=== PATIENT | female | born 1925 | race Caucasian/White ===

== ENCOUNTER 2016-08-20 19:01 | Inpatient (IN) | payer MEDICARE ==
[2016-08-20 19:02] VITALS: BMI 24.6
--- NOTE | 2016-08-20 19:49 | C.PDOC ---
History Of Present Illness 89 y/o female presents to ED with complaints of intermittent epigastric abdominal pain increased when eating or lying down. Patient states pain is similar as in the past and was admitted in February for same symptoms and biopsy of abdomen was done with a diagnosis of Gastritis and a Hernia. Patient states she has taken Zantac in the past for similar pain with relief but 3 days ago pain increased. She states that she feels bloated, worse at night with associated flatuence. Patient reports a bland diet and denies nausea, vomiting or any other complaints at this time. Time Seen by Provider: 08/20/16 19:33 Chief Complaint (Nursing): Abdominal Pain History Per: Patient History/Exam Limitations: no limitations Onset/Duration Of Symptoms: Days Current Symptoms Are (Timing): Still Present Location Of Pain/Discomfort: Epigastric Exacerbating Factors: Food Past Medical History Reviewed: Historical Data, Nursing Documentation, Vital Signs Vital Signs: Last Vital Signs Temp 97.5 F L 08/20/16 19:13 Pulse 60 08/20/16 19:13 Resp 16 08/20/16 19:13 BP 139/66 08/20/16 19:13 Pulse Ox 98 08/20/16 22:45 - Medical History PMH: Arthritis, Gastritis, HTN, Hypothyroidism Surgical History: Cholecystectomy - [facility] Procedures CLOSED ENDOSCOPIC BIOPSY OF LARGE INTESTINE (07/10/14) ESOPHAGOGASTRODUODENOSCOPY [EGD] W/CLOSED BIOPSY (07/17/14) Family History: States: Unknown Family Hx - Social History Hx Tobacco Use: No Hx Alcohol Use: No Hx Substance Use: No - Immunization History Hx Tetanus Toxoid Vaccination: No Hx Influenza Vaccination: Yes Hx Pneumococcal Vaccination: Yes Review Of Systems Except As Marked, All Systems Reviewed And Found Negative. Constitutional: Negative for: Fever, Chills Gastrointestinal: Positive for: Abdominal Pain. Negative for: Nausea, Vomiting , Diarrhea Musculoskeletal: Negative for: Back Pain Skin: Negative for: Rash Physical Exam - Physical Exam Appears: Non-toxic, No Acute Distress Skin: Normal Color, Warm Head: Atraumatic, Normacephalic Oral Mucosa: Moist Cardiovascular: Rhythm Regular, No Murmur Respiratory: Normal Breath Sounds, No Rales, No Rhonchi, No Wheezing Gastrointestinal/Abdominal: Bowel Sounds, Tenderness (Mild epigastrium tenderness), No Guarding, No Rebound Extremity: Normal ROM, Capillary Refill (<2 seconds) Neurological/Psych: Oriented x3 ED Course And Treatment - Laboratory Results Result Diagrams: 08/20/16 19:51 08/20/16 19:51 Lab Interpretation: Abnormal (Mild renal insufficience with BUN 44, Cr 2.0, slightly elevated compared to prior in Feb.) ECG: Interpreted By Me ECG Rhythm: 1st Degree HB ECG Interpretation: No Acute Changes O2 Sat by Pulse Oximetry: 98 (RA) Pulse Ox Interpretation: Normal - CT Scan/US Abd & pelvis CT Other Rad Studies (CT/US): Read By Radiologist, Radiology Report Reviewed CT/US Interpretation: FINDINGS: Lower thorax: Trace bibasilar atelectasis. ABDOMEN: Liver: No acute findings. Gallbladder and bile ducts: The gallbladder is surgically absent. No intra-extrahepatic biliary ductal. dilation. Pancreas: Limited evaluation secondary to the lack of intravenous contrast. Spleen: No acute findings. Adrenals: No acute findings. Kidneys and ureters: No obstructing stones. No hydronephrosis. PELVIS: Bladder: No acute findings. Reproductive: No acute findings. Appendix: The appendix is not definitively visualized, however no pericecal inflammatory changes. identified to suggest the presence of acute appendicitis. ABDOMEN and PELVIS: Stomach and bowel: Small bowel wall thickening within the upper abdomen, but no surrounding. inflammation or fluid to confirm an acute enteritis. Peritoneum: No acute findings. Lymph nodes: Limited evaluation without intravenous contrast. Vasculature: No aortic aneurysm. Calcified atherosclerotic disease. Bones: No acute fracture. IMPRESSION: Mural thickening within multiple loops of small bowel within the upper abdomen without surrounding. inflammation or fluid to confirm an acute enteritis. Reevaluation Time: 22:56 Reassessment Condition: Improved - Physician Consult Information Time Consulting Physician Contacted: 22:56 Physician Contacted: Sharee Rutledge Outcome Of Conversation: Patient to be kept on observation for evaluation of new renal insufficiency. Disposition - Disposition Disposition: HOSPITALIZED Disposition Time: 22:56 Condition: STABLE - POA Present On Arrival: None - Clinical Impression Clinical Impression: Abdominal pain, Renal insufficiency - Scribe Statement The provider has reviewed the documentation as recorded by the Scribe Indra Whitehead All medical record entries made by the Manjeetibe were at my direction and personally dictated by me. I have reviewed the chart and agree that the record accurately reflects my personal performance of the history, physical exam, medical decision making, and the department course for this patient. I have also personally directed, reviewed, and agree with the discharge instructions and disposition.
[2016-08-20 19:54] LABS: BASO % 0.3 % (0.0-2.0); EOS # 0.1 K/uL (0.0-0.7); EOS % 2.3 % (0.0-4.0); HEMATOCRIT 35.9 % (34.0-47.0); LYMPH % 33.1 % (20.0-40.0); MEAN CORPUSCULAR HEMOGLOBIN 33.2 pg (27.0-31.0); MEAN CORPUSCULAR HGB CONC 33.3 g/dL (33.0-37.0); MONO # 0.8 K/uL (0.0-0.8); MONO % 13.1 % (0.0-10.0); RED CELL DISTRIBUTION WIDTH 14.5 % (11.5-14.5); WHITE BLOOD COUNT 6.2 K/uL (4.8-10.8)
[2016-08-20 20:00] LABS: MEAN CELL VOLUME 99.6 fL (81.0-99.0)
[2016-08-20 20:21] LABS: POTASSIUM 5.1 mmol/L (3.6-5.2)
[2016-08-20 20:23] LABS: ALB/GLOB RATIO 1.4 (1.0-2.1); BILIRUBIN,TOTAL 0.5 mg/dL (0.2-1.3); TOTAL PROTEIN 7.3 g/dL (6.3-8.3)
[2016-08-20] MEDS ORDERED: Iohexol 240 (50 ml) ONE (20:51)
[2016-08-20 21:49] LABS: RBC URINE 1 /hpf (0-3); URINE BILIRUBIN NEGATIVE (NEGATIVE); URINE BLOOD NEGATIVE (NEGATIVE); URINE COLOR Straw (YELLOW); URINE GLUCOSE (UA) NORMAL (Normal); URINE KETONE NEGATIVE (NEGATIVE); URINE PROTEIN NEGATIVE (NEGATIVE); URINE UROBILINOGEN NORMAL mg/dL (0.2-1.0); WBC URINE 1 /hpf (0-5)
[2016-08-20 21:50] LABS: URINE LEUKOCYTE ESTERASE NEGATIVE Leu/uL (Negative)
--- NOTE | 2016-08-20 22:32 | CT ---
EXAM: CT Abdomen and Pelvis Without Intravenous Contrast CLINICAL HISTORY: 89 years old, female; Pain; Abdominal pain; Generalized; Additional info: Epigastric pain TECHNIQUE: Axial computed tomography images of the abdomen and pelvis without intravenous contrast. Oral contrast was utilized This CT exam was performed using one or more of the following dose reduction techniques: automated exposure control, adjustment of the mA and/or kV according to patient size, and/or use of iterative reconstruction technique. Coronal and sagittal reformatted images were created and reviewed. COMPARISON: No relevant prior studies available. FINDINGS: Lower thorax: Trace bibasilar atelectasis. ABDOMEN: Liver: No acute findings Gallbladder and bile ducts: The gallbladder is surgically absent. No intra-extrahepatic biliary ductal dilation. Pancreas: Limited evaluation secondary to the lack of intravenous contrast. Spleen: No acute findings. Adrenals: No acute findings. Kidneys and ureters: No obstructing stones. No hydronephrosis. PELVIS: Bladder: No acute findings. Reproductive: No acute findings. Appendix: The appendix is not definitively visualized, however no pericecal inflammatory changes identified to suggest the presence of acute appendicitis. ABDOMEN and PELVIS: Stomach and bowel: Small bowel wall thickening within the upper abdomen, but no surrounding inflammation or fluid to confirm an acute enteritis. Peritoneum: No acute findings. Lymph nodes: Limited evaluation without intravenous contrast. Vasculature: No aortic aneurysm. Calcified atherosclerotic disease. Bones: No acute fracture. IMPRESSION: Mural thickening within multiple loops of small bowel within the upper abdomen without surrounding inflammation or fluid to confirm an acute enteritis.
--- NOTE | 2016-08-20 23:26 | CP.PCM.HP ---
History of Present Illness - History of Present Illness History of Present Illness: Chief complaint: Abdominal pain History present illness: 89-year-old female with history of aortic regurgitation, atrial fibrillation, hypertension, hyperlipidemia on anticoagulation. Recently diagnosed with hypothyroidism. Started on levothyroxine. Patient called me office today in the morning, at the time she was complaining of abdominal pain. Patient started noticing pain since 2 days. Swelling got worse. The pain was mostly in the epigastric and right upper abdominal area, sometimes radiating to the lower abdominal region. She does not have any urinary symptoms. No fever or chills noted, denies any nausea vomiting. Patient did have a symptoms of lower back pain in the past, hospitalized with a severe lower back pain. Currently having no nausea, but abdominal pain worsening slowly. Surgical history: Cholecystectomy. Had a colonoscopy in 2014. Bilateral cataract surgery. Patient is on Coumadin for atrial fibrillation Allergy: No known drug allergy Personal history: Patient is a nonsmoker, nonalcoholic, currently independent and able to manage herself at home. Family history noncontributory. Both parents many years ago. History of heart disease and high blood pressure in the family Review of system: Currently having no headache, but the complaining of weakness tiredness, easy fatigability, chest pain negative, complaining of abdominal pain, epigastric area, sometimes associated with the nausea but no vomiting noted, leg swelling and leg pain negative Vital signs reviewed No neck vein distention noted Chest good air entry bilaterally, no wheezing or rales noted CVS regular heart sound, no murmur noted Abdominal discomfort and epigastric tenderness noted Extremities no pedal edema [employer] alert awake oriented 3, no functional neurological deficit Patient's labs reviewed Elevated creatinine level noted In 06/03/2016 patient had a blood works done in the office, at the time patient creatinine level is 1.4. At that time TSH was 38.9. 2 weeks ago patient started on levothyroxine 25 g CAT scan of the abdomen nonspecific today. Assessment and a condition: 89-year-old female with history of hypertension high cholesterol A. fib defibrillation hypothyroidism spinal stenosis lower back pain on anticoagulation history of cholecystectomy came to the emergency room with the abdominal pain. Unclear at this time, most likely nonspecific abdominal pain. Acute gastritis cannot be ruled out. There is a gastroenteritis possible. We will start the patient on IV fluid. Acute on chronic renal insufficiency noted. We'll get a GI evaluation. TSH monitoring. DVT GI prophylaxis and will follow the patient Present on Admission - Present on Admission Any Indicators Present on Admission: No History of DVT/PE: No History of Uncontrolled Diabetes: No Urinary Catheter: No Decubitus Ulcer Present: No Past Patient History - Past Medical History & Family History Past Medical History?: Yes - Past Social History Smoking Status: Never Smoked - CARDIAC Hx Hypertension: Yes - PULMONARY Hx Respiratory Disorders: No - NEUROLOGICAL Hx Neurological Disorder: No - HEENT Hx HEENT Problems: No - RENAL Hx Chronic Kidney Disease: No - ENDOCRINE/METABOLIC Hx Hypothyroidism: Yes - HEMATOLOGICAL/ONCOLOGICAL Hx Blood Disorders: No - INTEGUMENTARY Hx Dermatological Problems: No - MUSCULOSKELETAL/RHEUMATOLOGICAL Hx Arthritis: Yes - GASTROINTESTINAL Hx Gastritis: Yes - GENITOURINARY/GYNECOLOGICAL Hx Genitourinary Disorders: No - PSYCHIATRIC Hx Substance Use: No - SURGICAL HISTORY Hx Cholecystectomy: Yes - ANESTHESIA Hx Anesthesia: Yes Hx Anesthesia Reactions: No Hx Malignant Hyperthermia: No Meds Home Medications: Home Medication List Medication Instructions Recorded Confirmed Type Levothyroxine [Synthroid] 75 mcg PO DAILY@0630 #30 tab 08/26/16 Rx Pantoprazole [Protonix EC Tab] 40 mg PO DAILY #30 ect 08/26/16 Rx Allergies/Adverse Reactions: Allergies Allergy/AdvReac Type Severity Reaction Status Date / Time No Known Allergies Allergy Verified 08/20/16 19:28 Results - Vital Signs Recent Vital Signs: Last Vital Signs Temp 98.1 F 08/20/16 21:50 Pulse 68 08/20/16 21:50 Resp 16 08/20/16 21:50 BP 128/72 08/20/16 21:50 Pulse Ox 98 08/20/16 22:57 - Labs Result Diagrams: 08/26/16 08:23 08/26/16 08:23
[2016-08-21] MEDS: Sodium Chloride 0.9% 1,000 ML IV SCH ×2 (00:15→13:13)
[2016-08-21] MEDS: Levothyroxine 25 MCG TAB PO SCH (06:00)
[2016-08-21 11:50] LABS: INR 2.1; POTASSIUM 4.5 mmol/L (3.6-5.2)
[2016-08-21 11:54] LABS: CALCIUM 9.3 mg/dl (8.6-10.4)
--- NOTE | 2016-08-21 20:04 | CP.PCM.CON ---
History of Present Illness - History of Present Illness History of Present Illness: This is an 89 year old woman admitted with abdominal pain and renal insufficiency. Patient was evaluated in 2014. Colonoscopy was performed 07/10/2014 and was normal except for non-specific proctitis and internal hemorrhoids. She was admitted 07/17/2014 for LUQ pain with normal CT scan. 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 Patient was in her usual state of health until several months ago, when she noted epigastric abdominal pain while visiting the [facility]. She saw a doctor there who prescribed Zantac, which provided some relief. The pain recurred one week ago, and has been constant since then. The pain is located in the epigastrium, described as sharp, worse on recumbency and slightly improved on sitting up. There is no change in the pain with meals or defecation. She denies having heartburn, dysphagia, nausea or vomiting. Her appetite has been poor, and she has lost six pounds in the past month. She has been constipated, small, firm bowel movements every few days until the day prior to admission when she had one watery bowel movement. She denies having rectal bleeding, CT scan in the ER showed thickening of the wall of multiple small bowel loops without surrounding inflammation or fluid. Review of Systems - Review of Systems All systems: reviewed and no additional remarkable complaints except - Constitutional Constitutional: absent: Chills, Fever - Gastrointestinal Gastrointestinal: Abdominal Pain, Constipation, Diarrhea. absent: Dysphagia, Heartburn, Hematochezia, Nausea, Vomiting Past Patient History - Past Medical History & Family History Past Medical History?: Yes - Past Social History Smoking Status: Never Smoked - CARDIAC Hx Cardiac Disorders: Yes Hx Hypertension: Yes - PULMONARY Hx Respiratory Disorders: No - NEUROLOGICAL Hx Neurological Disorder: No - HEENT Hx HEENT Problems: No Other/Comment: uses eyeglasses - RENAL Hx Chronic Kidney Disease: No - ENDOCRINE/METABOLIC Hx Hypothyroidism: Yes - HEMATOLOGICAL/ONCOLOGICAL Hx Blood Disorders: No - INTEGUMENTARY Hx Dermatological Problems: No - MUSCULOSKELETAL/RHEUMATOLOGICAL Hx Arthritis: Yes (BACK) - GASTROINTESTINAL Hx Gastrointestinal Disorders: Yes Hx Gastritis: Yes - GENITOURINARY/GYNECOLOGICAL Hx Genitourinary Disorders: No - PSYCHIATRIC Hx Psychophysiologic Disorder: No Hx Substance Use: No - SURGICAL HISTORY Hx Surgeries: Yes Hx Cholecystectomy: Yes - ANESTHESIA Hx Anesthesia: Yes Hx Anesthesia Reactions: No Hx Malignant Hyperthermia: No Meds Allergies/Adverse Reactions: Allergies Allergy/AdvReac Type Severity Reaction Status Date / Time No Known Allergies Allergy Verified 08/20/16 19:28 - Medications Medications: Current Medications Amiodarone HCl (Cordarone) 200 mg PO DAILY [facility] Last Admin: 08/21/16 09:21 Dose: Not Given Amlodipine Besylate (Norvasc) 5 mg PO DAILY [facility] Last Admin: 08/21/16 09:22 Dose: 5 mg Famotidine (Pepcid) 20 mg PO DAILY [facility] Last Admin: 08/21/16 09:22 Dose: 20 mg Sodium Chloride (Sodium Chloride 0.9%) 1,000 mls @ 75 mls/hr IV .[id number] [facility] Last Admin: 08/21/16 13:13 Dose: 75 mls/hr Levothyroxine Sodium (Synthroid) 25 mcg PO DAILY@0630 [facility] Last Admin: 08/21/16 06:00 Dose: 25 mcg Losartan Potassium (Cozaar) 25 mg PO DAILY [facility] Last Admin: 08/21/16 09:22 Dose: 25 mg Metoprolol Tartrate (Lopressor) 25 mg PO DAILY [facility] Pneumococcal Polyvalent Vaccine (Pneumovax 23 Vaccine) 0.5 ml IM .ONCE ONE Stop: 08/22/16 10:01 Physical Exam - Constitutional Appears: No Acute Distress - Head Exam Head Exam: ATRAUMATIC, NORMOCEPHALIC - Eye Exam Eye Exam: EOMI, PERRL - Neck Exam Neck exam: Negative for: Lymphadenopathy, Thyromegaly - Respiratory Exam Respiratory Exam: NORMAL BREATHING PATTERN. absent: Rales, Rhonchi, Wheezes - Cardiovascular Exam Cardiovascular Exam: REGULAR RHYTHM, +S1, +S2. absent: Gallop, Rubs, Systolic Murmur - GI/Abdominal Exam GI & Abdominal Exam: Normal Bowel Sounds, Soft. absent: Mass, Organomegaly, Tenderness - Rectal Exam Rectal Exam: Deferred - Extremities Exam Extremities exam: Negative for: calf tenderness, pedal edema Results - Vital Signs Recent Vital Signs: Last Vital Signs Temp 98.0 F 08/21/16 16:00 Pulse 52 L 08/21/16 16:00 Resp 20 08/21/16 16:00 BP 122/59 L 08/21/16 16:00 Pulse Ox 97 08/21/16 16:00 - Labs Result Diagrams: 08/22/16 07:00 08/22/16 07:00 Labs: Laboratory Results - last 24 hr 08/21/16 08/21/16 11:36 11:36 PT 25.1 H INR 2.1 Sodium 143 Potassium 4.5 Chloride 106 Carbon Dioxide 26 Anion Gap 16 BUN 33 H Creatinine 1.6 H Est GFR ( Amer) 37 Est GFR (Non-Af Amer) 30 Random Glucose 121 H Calcium 9.3 Assessment & Plan (1) Abdominal pain Assessment and Plan: Patient presents with epigastric abdominal pain and findings of thickening of the wall of small bowel loops on CT scan. The appearance of the small bowel is worrisome for inflammation as from Crohn's disease, intramural hematoma, or ischemia. We should check a CT angiogram when renal function improves, and doppler of the mesenteric arteries for now. Status: Acute
[2016-08-21 21:03] LABS: BASO % 0.5 % (0.0-2.0); EOS # 0.1 K/uL (0.0-0.7); EOS % 2.6 % (0.0-4.0); HEMATOCRIT 37.3 % (34.0-47.0); LYMPH # 1.9 K/uL (1.0-4.3); LYMPH % 34.1 % (20.0-40.0); MEAN CELL VOLUME 100.5 fL (81.0-99.0); MEAN CORPUSCULAR HEMOGLOBIN 33.1 pg (27.0-31.0); MEAN CORPUSCULAR HGB CONC 32.9 g/dL (33.0-37.0); MEAN PLATELET VOLUME 8.9 fL (7.2-11.7); MONO # 0.7 K/uL (0.0-0.8); MONO % 12.7 % (0.0-10.0); NRBC % 0.1 % (0.0-2.0); RED CELL DISTRIBUTION WIDTH 14.7 % (11.5-14.5); WHITE BLOOD COUNT 5.5 K/uL (4.8-10.8)
[2016-08-21 21:13] LABS: POTASSIUM 4.4 mmol/L (3.6-5.2)
[2016-08-21 21:15] LABS: BILIRUBIN,TOTAL 0.5 mg/dL (0.2-1.3)
[2016-08-21 21:16] LABS: ALB/GLOB RATIO 1.2 (1.0-2.1); CALCIUM 8.6 mg/dl (8.6-10.4); PHOSPHOROUS 3.1 mg/dL (2.5-4.5); TOTAL PROTEIN 7.1 g/dL (6.3-8.3)
--- NOTE | 2016-08-22 00:32 | CARD ---
APPROVED REPORT EKG Measurement Heart [id number] <Conclusion> Sinus rhythm with 1st degree AV block Otherwise normal ECG
[2016-08-22] MEDS: Sodium Chloride 0.9% 1,000 ML IV SCH ×2 (02:00→14:33)
[2016-08-22] MEDS: Levothyroxine 25 MCG TAB PO SCH (05:45)
[2016-08-22 07:28] LABS: ALB/GLOB RATIO 1.3 (1.0-2.1); BILIRUBIN,TOTAL 0.7 mg/dL (0.2-1.3); CALCIUM 8.8 mg/dl (8.6-10.4); POTASSIUM 4.1 mmol/L (3.6-5.2); TOTAL PROTEIN 7.5 g/dL (6.3-8.3)
[2016-08-22 07:37] LABS: BASO % 0.4 % (0.0-2.0); EOS # 0.1 K/uL (0.0-0.7); EOS % 2.1 % (0.0-4.0); HEMATOCRIT 37.4 % (34.0-47.0); LYMPH # 1.6 K/uL (1.0-4.3); LYMPH % 22.1 % (20.0-40.0); MEAN CELL VOLUME 99.1 fL (81.0-99.0); MEAN CORPUSCULAR HEMOGLOBIN 33.2 pg (27.0-31.0); MEAN CORPUSCULAR HGB CONC 33.5 g/dL (33.0-37.0); MEAN PLATELET VOLUME 8.7 fL (7.2-11.7); MONO # 0.5 K/uL (0.0-0.8); MONO % 7.4 % (0.0-10.0); RED CELL DISTRIBUTION WIDTH 14.6 % (11.5-14.5)
--- NOTE | 2016-08-22 08:35 | CP.PCM.PN ---
Subjective - Date & Time of Evaluation Date of Evaluation: 08/22/16 Time of Evaluation: 08:31 - Subjective Subjective: Patient continues to complain of subxiphoid pain. She denies having nausea and vomiting. She has not had a bowel movement so far today. Objective - Vital Signs/Intake and Output Vital Signs (last 24 hours): Temp Pulse Resp BP Pulse Ox 98 F 60 20 117/57 L 96 08/22/16 07:55 08/22/16 07:55 08/22/16 07:55 08/22/16 07:55 08/22/16 07:55 Intake and Output: 08/22/16 08/22/16 06:59 18:59 Intake Total 1750 Balance 1750 - Medications Medications: Current Medications Amiodarone HCl (Cordarone) 200 mg PO DAILY [facility] Last Admin: 08/21/16 09:21 Dose: Not Given Amlodipine Besylate (Norvasc) 5 mg PO DAILY [facility] Last Admin: 08/21/16 09:22 Dose: 5 mg Famotidine (Pepcid) 20 mg PO DAILY [facility] Last Admin: 08/21/16 09:22 Dose: 20 mg Sodium Chloride (Sodium Chloride 0.9%) 1,000 mls @ 75 mls/hr IV .[id number] [facility] Last Admin: 08/22/16 02:00 Dose: 75 mls/hr Levothyroxine Sodium (Synthroid) 25 mcg PO DAILY@0630 [facility] Last Admin: 08/22/16 05:45 Dose: 25 mcg Losartan Potassium (Cozaar) 25 mg PO DAILY [facility] Last Admin: 08/21/16 09:22 Dose: 25 mg Metoprolol Tartrate (Lopressor) 25 mg PO DAILY [facility] Pneumococcal Polyvalent Vaccine (Pneumovax 23 Vaccine) 0.5 ml IM .ONCE ONE Stop: 08/22/16 10:01 - Labs Labs: 08/22/16 07:00 08/22/16 07:00 PT 25.1 SECONDS (9.7-12.2) H 08/21/16 11:36 INR 2.1 08/21/16 11:36 - Constitutional Appears: No Acute Distress - Head Exam Head Exam: ATRAUMATIC, NORMOCEPHALIC - Eye Exam Eye Exam: EOMI, PERRL - Neck Exam Neck Exam: absent: Lymphadenopathy, Thyromegaly - Respiratory Exam Respiratory Exam: NORMAL BREATHING PATTERN. absent: Rales, Rhonchi, Wheezes - Cardiovascular Exam Cardiovascular Exam: REGULAR RHYTHM, +S1, +S2. absent: Gallop, Rubs, Murmur - GI/Abdominal Exam GI & Abdominal Exam: Soft, Normal Bowel Sounds. absent: Tenderness, Mass, Organomegaly - Rectal Exam Rectal Exam: Deferred - Extremities Exam Extremities Exam: absent: Calf Tenderness, Pedal Edema Assessment and Plan (1) Abdominal pain Assessment & Plan: Patient states that she continues to experience pain in the subxiphoid area. The CT scan showed mural thickening of several loops of small bowel. The lactate level was normal, but the amylase was elevated at 234. Will check doppler of the mesenteric arteries. Recommend CT angiogram if renal function permits, Status: Acute
[2016-08-22 09:02] LABS: THYROID STIMULATING HORMONE 32.8 mIU/L (0.46-4.68)
[2016-08-22] MEDS ORDERED: Pneumococcal 23-Valent Vaccine IM ONE (10:00)
--- NOTE | 2016-08-22 10:01 | CP.PCM.CON ---
History of Present Illness - History of Present Illness History of Present Illness: Vascular sx consult for Dr. Sara Posey, PGY-1 Pt S & E at bedside. 89F w/PMH sig for afib consulted for possible mesenteric ischemia. Pt reports LLQ ab discomfort x 2 mos. Discomfort is moderate, intermittent, radiates to epigastric area when recumbent, "pressure" - like/bloating, "gnawing". Pt reports recent wt loss of 6lbs over last few months due to early satiety. Discomfort is not associated with eating. Discomfort alleviated by compressive garments, minimally helped by Zantac and Nexium, hot water bottles. Admits to dizziness, decreased energy, insomnia, feeling "drunk", occasional constipation w/small pasty stools and straining to pass stool. Denies N/V/F/C, CP, palpitations, hematochezia, occasional diarrhea, numbness and tingling. PMH: afib on Coumadin, Aortic regurgitation, HTN, HLD, arthritis, hypothyroidism , internal hemorrhoids, proctitis PSH: x 1, cholecystectomy, colonoscopy (2015), B/L cataract sx All: Denies SH: Denies ETOH, tobacco, illicit drug use PMD: Aamir Review of Systems - Review of Systems All systems: reviewed and no additional remarkable complaints except - Constitutional Constitutional: Weight Loss, Weakness. absent: Chills, Fever - EENT Ears: Dizziness Nose/Mouth/Throat: absent: Dysphagia, Odynophagia, Sore Throat, Neck Pain - Cardiovascular Cardiovascular: absent: Chest Pain, Palpitations - Respiratory Respiratory: absent: Cough, Chest Congestion - Gastrointestinal Gastrointestinal: Belching, Bloating, Constipation, Diarrhea, Early Satiety. absent: Abdominal Pain, Hematemesis, Hematochezia, Nausea, Vomiting - Genitourinary Genitourinary: absent: Dysuria - Musculoskeletal Musculoskeletal: absent: Numbness, Tingling - Neurological Neurological: Dizziness, Weakness - Psychiatric Psychiatric: Abnormal Sleep Pattern Past Patient History - Past Medical History & Family History Past Medical History?: Yes - Past Social History Smoking Status: Never Smoked - CARDIAC Hx Cardiac Disorders: Yes Hx Hypertension: Yes - PULMONARY Hx Respiratory Disorders: No - NEUROLOGICAL Hx Neurological Disorder: No - HEENT Hx HEENT Problems: No Other/Comment: uses eyeglasses - RENAL Hx Chronic Kidney Disease: No - ENDOCRINE/METABOLIC Hx Hypothyroidism: Yes - HEMATOLOGICAL/ONCOLOGICAL Hx Blood Disorders: No - INTEGUMENTARY Hx Dermatological Problems: No - MUSCULOSKELETAL/RHEUMATOLOGICAL Hx Arthritis: Yes (BACK) - GASTROINTESTINAL Hx Gastrointestinal Disorders: Yes Hx Gastritis: Yes - GENITOURINARY/GYNECOLOGICAL Hx Genitourinary Disorders: No - PSYCHIATRIC Hx Psychophysiologic Disorder: No Hx Substance Use: No - SURGICAL HISTORY Hx Surgeries: Yes Hx Cholecystectomy: Yes - ANESTHESIA Hx Anesthesia: Yes Hx Anesthesia Reactions: No Hx Malignant Hyperthermia: No Meds Allergies/Adverse Reactions: Allergies Allergy/AdvReac Type Severity Reaction Status Date / Time No Known Allergies Allergy Verified 08/20/16 19:28 - Medications Medications: Current Medications Amiodarone HCl (Cordarone) 200 mg PO DAILY [facility] Last Admin: 08/21/16 09:21 Dose: Not Given Amlodipine Besylate (Norvasc) 5 mg PO DAILY [facility] Last Admin: 08/21/16 09:22 Dose: 5 mg Sodium Chloride (Sodium Chloride 0.9%) 1,000 mls @ 75 mls/hr IV .[id number] [facility] Last Admin: 08/22/16 02:00 Dose: 75 mls/hr Levothyroxine Sodium (Synthroid) 25 mcg PO DAILY@0630 [facility] Last Admin: 08/22/16 05:45 Dose: 25 mcg Losartan Potassium (Cozaar) 25 mg PO DAILY [facility] Last Admin: 08/21/16 09:22 Dose: 25 mg Metoprolol Tartrate (Lopressor) 25 mg PO DAILY [facility] Pantoprazole Sodium (Protonix Ec Tab) 40 mg PO DAILY [facility] Pneumococcal Polyvalent Vaccine (Pneumovax 23 Vaccine) 0.5 ml IM .ONCE ONE Stop: 08/22/16 10:01 Physical Exam - Constitutional Appears: Non-toxic, No Acute Distress - Head Exam Head Exam: ATRAUMATIC, NORMAL INSPECTION, NORMOCEPHALIC - Eye Exam Eye Exam: EOMI, Normal appearance - ENT Exam ENT Exam: Mucous Membranes Moist, Normal Exam - Neck Exam Neck exam: Positive for: Full Rom - Respiratory Exam Respiratory Exam: Clear to Auscultation Bilateral, NORMAL BREATHING PATTERN - Cardiovascular Exam Cardiovascular Exam: Irregular Rhythm - GI/Abdominal Exam GI & Abdominal Exam: Normal Bowel Sounds, Soft. absent: Distended, Firm, Guarding, Rebound, Rigid, Tenderness - Extremities Exam Extremities exam: Positive for: normal inspection. Negative for: pedal edema - Neurological Exam Neurological exam: Alert, CN II-XII Intact, Oriented x3 - Psychiatric Exam Psychiatric exam: Normal Affect, Normal Mood - Skin Skin Exam: Dry, Intact, Normal Color, Warm Additional comments: Midline well healed suprapubic scar extending to distal umbilicus Results - Vital Signs Recent Vital Signs: Last Vital Signs Temp 98 F 08/22/16 07:55 Pulse 60 08/22/16 07:55 Resp 20 08/22/16 07:55 BP 117/57 L 08/22/16 07:55 Pulse Ox 96 08/22/16 07:55 - Labs Result Diagrams: 08/22/16 07:00 08/22/16 07:00 Labs: Laboratory Results - last 24 hr 08/21/16 08/21/16 08/21/16 11:36 11:36 21:00 WBC 5.5 RBC 3.71 L Hgb 12.3 Hct 37.3 MCV 100.5 H MCH 33.1 H MCHC 32.9 L RDW 14.7 H Plt Count 129 L MPV 8.9 Neut % (Auto) 50.1 Lymph % (Auto) 34.1 Polk % (Auto) 12.7 H Eos % (Auto) 2.6 Baso % (Auto) 0.5 Neut # 2.7 Lymph # 1.9 Polk # 0.7 Eos # 0.1 Baso # 0.0 Differential Comment PT 25.1 H INR 2.1 Sodium 143 Potassium 4.5 Chloride 106 Carbon Dioxide 26 Anion Gap 16 BUN 33 H Creatinine 1.6 H Est GFR ( Amer) 37 Est GFR (Non-Af Amer) 30 Random Glucose 121 H Lactic Acid Calcium 9.3 Phosphorus Magnesium Total Bilirubin AST ALT Alkaline Phosphatase Total Protein Albumin Globulin Albumin/Globulin Ratio Amylase TSH 3rd Generation 08/21/16 08/21/16 08/22/16 21:00 21:00 07:00 WBC 7.0 RBC 3.77 L Hgb 12.5 Hct 37.4 MCV 99.1 H MCH 33.2 H MCHC 33.5 RDW 14.6 H Plt Count 156 MPV 8.7 Neut % (Auto) 68.0 Lymph % (Auto) 22.1 Polk % (Auto) 7.4 Eos % (Auto) 2.1 Baso % (Auto) 0.4 Neut # 4.8 Lymph # 1.6 Polk # 0.5 Eos # 0.1 Baso # 0.0 Differential Comment PT INR Sodium 137 Potassium 4.4 Chloride 100 Carbon Dioxide 25 Anion Gap 17 BUN 28 H Creatinine 1.4 H Est GFR ( Amer) 43 Est GFR (Non-Af Amer) 35 Random Glucose 98 Lactic Acid 1.0 Calcium 8.6 Phosphorus 3.1 Magnesium 2.0 Total Bilirubin 0.5 AST 27 ALT 24 Alkaline Phosphatase 42 Total Protein 7.1 Albumin 3.9 Globulin 3.2 Albumin/Globulin Ratio 1.2 Amylase 234 H TSH 3rd Generation 08/22/16 07:00 WBC RBC Hgb Hct MCV MCH MCHC RDW Plt Count MPV Neut % (Auto) Lymph % (Auto) Polk % (Auto) Eos % (Auto) Baso % (Auto) Neut # Lymph # Polk # Eos # Baso # Differential Comment PT INR Sodium 139 Potassium 4.1 Chloride 104 Carbon Dioxide 25 Anion Gap 14 BUN 23 H Creatinine 1.2 Est GFR ( Amer) 51 Est GFR (Non-Af Amer) 42 Random Glucose 91 Lactic Acid Calcium 8.8 Phosphorus Magnesium Total Bilirubin 0.7 AST 44 H D ALT 20 Alkaline Phosphatase 47 Total Protein 7.5 Albumin 4.2 Globulin 3.3 Albumin/Globulin Ratio 1.3 Amylase TSH 3rd Generation 32.80 H Assessment & Plan - Assessment and Plan (Free Text) Assessment: 89F w/LLQ ab discomfort, possible mesenteric ischemia. Pt currently asymptomatic. Plan: FU arterial duplex of SMA/Celiac FU CTA Recommend N-acetylcysteine and gentle IVF for nephro-protection Further recs after completion of studies DW attending Taty, PGY-1 - Date & Time Date: 08/22/16 Time: 10:01
[2016-08-22] MEDS ORDERED: Acetylcysteine 20% Inhal Soln (4ml) INH SCH (10:30)
[2016-08-22] MEDS: Pantoprazole 40 mg EC Tab PO SCH (10:37)
[2016-08-22 11:33] LABS: INR 2.2
[2016-08-22 11:39] LABS: AMYLASE 219 U/L (30-110)
[2016-08-22] MEDS: Acetylcysteine 20% Inhal Soln (4ml) PO SCH (11:57)
[2016-08-23] MEDS: Sodium Chloride 0.9% 1,000 ML IV SCH ×4 (04:45→20:14)
[2016-08-23] MEDS: Levothyroxine 25 MCG TAB PO SCH (07:13)
[2016-08-23 07:22] LABS: BASO % 0.4 % (0.0-2.0); EOS # 0.1 K/uL (0.0-0.7); EOS % 1.5 % (0.0-4.0); HEMATOCRIT 34.6 % (34.0-47.0); LYMPH # 1.4 K/uL (1.0-4.3); LYMPH % 20.1 % (20.0-40.0); MEAN CELL VOLUME 99.2 fL (81.0-99.0); MEAN CORPUSCULAR HEMOGLOBIN 33.2 pg (27.0-31.0); MEAN CORPUSCULAR HGB CONC 33.4 g/dL (33.0-37.0); MEAN PLATELET VOLUME 8.3 fL (7.2-11.7); MONO # 0.6 K/uL (0.0-0.8); MONO % 8.4 % (0.0-10.0); RED CELL DISTRIBUTION WIDTH 14.4 % (11.5-14.5); WHITE BLOOD COUNT 6.8 K/uL (4.8-10.8)
[2016-08-23 07:34] LABS: POTASSIUM 4.5 mmol/L (3.6-5.2)
[2016-08-23 07:36] LABS: ALB/GLOB RATIO 1.3 (1.0-2.1); BILIRUBIN,TOTAL 0.5 mg/dL (0.2-1.3); TOTAL PROTEIN 6.5 g/dL (6.3-8.3)
[2016-08-23 07:37] LABS: CALCIUM 8.9 mg/dl (8.6-10.4)
--- NOTE | 2016-08-23 08:02 | CP.PCM.PN ---
Subjective - Date & Time of Evaluation Date of Evaluation: 08/23/16 Time of Evaluation: 07:59 - Subjective Subjective: Surgery: Dr. Hitchcock Patient doing well. States she had an episode on supraumbilical/epigastric pain last night. Pain subsided on its own. She states she is tolerating diet. Food does no worsen/increase pain. She denies f/c/n/v. +nonbloody bowel movement. Objective - Vital Signs/Intake and Output Vital Signs (last 24 hours): Temp Pulse Resp BP Pulse Ox 98.4 F 64 20 116/61 98 08/23/16 00:00 08/23/16 00:00 08/23/16 00:00 08/23/16 00:00 08/23/16 00:00 Intake and Output: 08/23/16 08/23/16 06:59 18:59 Intake Total 1700 Balance 1700 - Medications Medications: Current Medications Acetylcysteine (Acetylcysteine 20%) 3 ml PO Q12 [facility] Stop: 08/23/16 22:01 Last Admin: 08/22/16 11:57 Dose: 3 ml Amiodarone HCl (Cordarone) 200 mg PO DAILY [facility] Last Admin: 08/22/16 10:37 Dose: 200 mg Amlodipine Besylate (Norvasc) 5 mg PO DAILY [facility] Last Admin: 08/22/16 10:41 Dose: 5 mg Sodium Chloride (Sodium Chloride 0.9%) 1,000 mls @ 75 mls/hr IV .[id number] [facility] Last Admin: 08/23/16 04:45 Dose: 75 mls/hr Levothyroxine Sodium (Synthroid) 25 mcg PO DAILY@0630 [facility] Last Admin: 08/23/16 07:13 Dose: 25 mcg Losartan Potassium (Cozaar) 25 mg PO DAILY [facility] Last Admin: 08/22/16 10:37 Dose: 25 mg Metoprolol Tartrate (Lopressor) 25 mg PO DAILY [facility] Last Admin: 08/22/16 10:37 Dose: 25 mg Pantoprazole Sodium (Protonix Ec Tab) 40 mg PO DAILY [facility] Last Admin: 08/22/16 10:37 Dose: 40 mg - Labs Labs: 08/23/16 07:11 08/23/16 07:11 PT 22.8 SECONDS (9.7-12.2) H 08/23/16 07:11 INR 2.0 08/23/16 07:11 - Constitutional Appears: Non-toxic, No Acute Distress - Head Exam Head Exam: ATRAUMATIC, NORMOCEPHALIC - Eye Exam Eye Exam: EOMI, Normal appearance - ENT Exam ENT Exam: Mucous Membranes Moist - Respiratory Exam Respiratory Exam: NORMAL BREATHING PATTERN. absent: Respiratory Distress - Cardiovascular Exam Cardiovascular Exam: REGULAR RHYTHM. absent: Tachycardia - GI/Abdominal Exam GI & Abdominal Exam: Soft. absent: Distended, Guarding, Rigid, Tenderness, Rebound - Extremities Exam Extremities Exam: absent: Calf Tenderness - Neurological Exam Neurological Exam: Alert, Awake - Psychiatric Exam Psychiatric exam: Normal Affect, Normal Mood - Skin Skin Exam: Dry, Normal Color, Warm Assessment and Plan - Assessment and Plan (Free Text) Assessment: 89 y/o female w/ nonspecific abdominal pain Plan: -f/u CTA of abd/pelvis -cont current management per primary -pending results determines further surgical intervention -further recs per Dr. Coretta CABRERAjeni PGY3
[2016-08-23 08:44] LABS: FOLATE 18.6 ng/mL
[2016-08-23] MEDS ORDERED: Iodixanol 320 MG/ML 100 ML BOTTLE IV ONE (09:30)
--- NOTE | 2016-08-23 10:01 | CP.PCM.PN ---
Subjective - Date & Time of Evaluation Date of Evaluation: 08/23/16 Time of Evaluation: 09:58 - Subjective Subjective: Covering Dr Baker. F/U abdom pain. Reports still feels mid abdominal discomfort. Had pasty stools before- today normal BM. Denies RB, melena, fever, chills, SZ, LOC, GARCÍA, cough hematuria, hemoptysis. Objective - Vital Signs/Intake and Output Vital Signs (last 24 hours): Temp Pulse Resp BP Pulse Ox 98.1 F 69 20 137/75 97 08/23/16 08:00 08/23/16 08:00 08/23/16 08:00 08/23/16 08:00 08/23/16 08:00 Intake and Output: 08/23/16 08/23/16 06:59 18:59 Intake Total 1700 Balance 1700 - Medications Medications: Current Medications Acetylcysteine (Acetylcysteine 20%) 3 ml PO Q12 [facility] Stop: 08/23/16 22:01 Last Admin: 08/22/16 11:57 Dose: 3 ml Amiodarone HCl (Cordarone) 200 mg PO DAILY [facility] Last Admin: 08/22/16 10:37 Dose: 200 mg Amlodipine Besylate (Norvasc) 5 mg PO DAILY [facility] Last Admin: 08/22/16 10:41 Dose: 5 mg Sodium Chloride (Sodium Chloride 0.9%) 1,000 mls @ 75 mls/hr IV .[id number] [facility] Last Admin: 08/23/16 04:45 Dose: 75 mls/hr Levothyroxine Sodium (Synthroid) 25 mcg PO DAILY@0630 [facility] Last Admin: 08/23/16 07:13 Dose: 25 mcg Losartan Potassium (Cozaar) 25 mg PO DAILY [facility] Last Admin: 08/22/16 10:37 Dose: 25 mg Metoprolol Tartrate (Lopressor) 25 mg PO DAILY [facility] Last Admin: 08/22/16 10:37 Dose: 25 mg Pantoprazole Sodium (Protonix Ec Tab) 40 mg PO DAILY [facility] Last Admin: 08/22/16 10:37 Dose: 40 mg - Labs Labs: 08/23/16 07:11 08/23/16 07:11 PT 22.8 SECONDS (9.7-12.2) H 08/23/16 07:11 INR 2.0 08/23/16 07:11 - Constitutional Appears: Well - Respiratory Exam Respiratory Exam: Clear to Ausculation Bilateral - Cardiovascular Exam Cardiovascular Exam: Irregular Rhythm - GI/Abdominal Exam GI & Abdominal Exam: Soft, Normal Bowel Sounds. absent: Guarding, Tenderness, Rebound - Neurological Exam Neurological Exam: Alert, Oriented x3 - Skin Skin Exam: Intact Assessment and Plan (1) Atrial fibrillation Status: Acute (2) Hypothyroid Status: Acute (3) Abdominal pain Assessment & Plan: sm bowel thick on CT. For CT angio- check results. Status: Acute (4) Renal insufficiency Status: Acute
--- NOTE | 2016-08-23 11:03 | CT ---
PROCEDURE: CTA of the abdomen and pelvis HISTORY: Mesenteric ischemia COMPARISON: Comparison is made to the previous CT study dated 08/20/2016 TECHNIQUE: CT angiogram of the abdomen and pelvis were obtained in the arterial phase after IV contrast administration. FINDINGS: ABDOMINAL AORTA:: Moderate atherosclerotic disease and diffuse calcifications seen in the abdominal aorta. No evidence of aortic aneurysm or dissection. 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 Renal arteries: The renal arteries are patent demonstrate atherosclerotic disease and mild stenosis bilaterally. No evidence of acute pathology in the liver spleen pancreas and adrenal glands. Patient status post cholecystectomy. Mildly dilated common bile duct is again noted. The kidneys enhance symmetrically without evidence of hydronephrosis or enhancing mass lesion. No evidence of bowel obstruction. Mild thickening of the small bowel loops is again noted without evidence of pneumatosis. Urinary bladder wall thickening is noted suspicious for cystitis. The uterus and adnexa are unremarkable. Diffuse osteopenia is noted. 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 [id number] atherosclerotic disease. Nonspecific mild small bowel wall thickening has improved since the previous exam, without evidence of pneumatosis or bowel obstruction.
[2016-08-23] MEDS: Pantoprazole 40 mg EC Tab PO SCH (11:45)
--- NOTE | 2016-08-23 18:32 | CP.PCM.PN ---
Subjective - Date & Time of Evaluation Date of Evaluation: 08/23/16 Time of Evaluation: 18:32 - Subjective Subjective: feeling better, pain in the right flank area, no urinary symptoms. Clinical stable. Objective - Vital Signs/Intake and Output Vital Signs (last 24 hours): Temp Pulse Resp BP Pulse Ox 98 F 54 L 20 107/49 L 96 08/23/16 15:00 08/23/16 15:00 08/23/16 15:00 08/23/16 15:00 08/23/16 15:00 Intake and Output: 08/23/16 08/23/16 06:59 18:59 Intake Total 1700 800 Balance 1700 800 - Medications Medications: Current Medications Acetylcysteine (Acetylcysteine 20%) 3 ml PO Q12 [facility] Stop: 08/23/16 22:01 Last Admin: 08/22/16 11:57 Dose: 3 ml Amiodarone HCl (Cordarone) 200 mg PO DAILY [facility] Last Admin: 08/23/16 11:45 Dose: 200 mg Amlodipine Besylate (Norvasc) 5 mg PO DAILY [facility] Last Admin: 08/23/16 11:45 Dose: 5 mg Sodium Chloride (Sodium Chloride 0.9%) 1,000 mls @ 75 mls/hr IV .[id number] [facility] Last Admin: 08/23/16 04:45 Dose: 75 mls/hr Levothyroxine Sodium (Synthroid) 75 mcg PO DAILY@0630 [facility] Losartan Potassium (Cozaar) 25 mg PO DAILY [facility] Last Admin: 08/23/16 11:45 Dose: 25 mg Metoprolol Tartrate (Lopressor) 25 mg PO DAILY [facility] Last Admin: 08/23/16 11:48 Dose: 25 mg Pantoprazole Sodium (Protonix Ec Tab) 40 mg PO DAILY [facility] Last Admin: 08/23/16 11:45 Dose: 40 mg - Labs Labs: 08/23/16 07:11 08/23/16 07:11 PT 22.8 SECONDS (9.7-12.2) H 08/23/16 07:11 INR 2.0 08/23/16 07:11
[2016-08-23] MEDS: Acetylcysteine 20% Inhal Soln (4ml) PO SCH (22:11)
[2016-08-24] MEDS: Levothyroxine 75 MCG TAB PO SCH (06:29)
[2016-08-24 08:02] LABS: BASO % 0.3 % (0.0-2.0); EOS # 0.1 K/uL (0.0-0.7); EOS % 1.9 % (0.0-4.0); HEMATOCRIT 33.5 % (34.0-47.0); LYMPH # 1.6 K/uL (1.0-4.3); LYMPH % 25.7 % (20.0-40.0); MEAN CELL VOLUME 99.6 fL (81.0-99.0); MEAN CORPUSCULAR HEMOGLOBIN 33.1 pg (27.0-31.0); MEAN CORPUSCULAR HGB CONC 33.2 g/dL (33.0-37.0); MEAN PLATELET VOLUME 8.6 fL (7.2-11.7); MONO # 0.7 K/uL (0.0-0.8); MONO % 10.7 % (0.0-10.0); RED CELL DISTRIBUTION WIDTH 14.2 % (11.5-14.5); WHITE BLOOD COUNT 6.3 K/uL (4.8-10.8)
--- NOTE | 2016-08-24 08:29 | CP.PCM.PN ---
Subjective - Date & Time of Evaluation Date of Evaluation: 08/24/16 Time of Evaluation: 08:26 - Subjective Subjective: Surgery: Dr. Hitchcock Patient doing well. Feels better. Some mild pain list night around 9pm but resolved quickly on its own. Reports 2 normal bowel movements yesterday. Denies n/v/f/c. Objective - Vital Signs/Intake and Output Vital Signs (last 24 hours): Temp Pulse Resp BP Pulse Ox 98.2 F 67 20 147/69 98 08/24/16 08:25 08/24/16 08:25 08/24/16 08:25 08/24/16 08:25 08/24/16 08:25 Intake and Output: 08/24/16 08/24/16 06:59 18:59 Intake Total 600 Balance 600 - Medications Medications: Current Medications Amiodarone HCl (Cordarone) 200 mg PO DAILY [facility] Last Admin: 08/23/16 11:45 Dose: 200 mg Amlodipine Besylate (Norvasc) 5 mg PO DAILY [facility] Last Admin: 08/23/16 11:45 Dose: 5 mg Levothyroxine Sodium (Synthroid) 75 mcg PO DAILY@0630 [facility] Last Admin: 08/24/16 06:29 Dose: 75 mcg Losartan Potassium (Cozaar) 25 mg PO DAILY [facility] Last Admin: 08/23/16 11:45 Dose: 25 mg Metoprolol Tartrate (Lopressor) 25 mg PO DAILY [facility] Last Admin: 08/23/16 11:48 Dose: 25 mg Pantoprazole Sodium (Protonix Ec Tab) 40 mg PO DAILY [facility] Last Admin: 08/23/16 11:45 Dose: 40 mg - Labs Labs: 08/24/16 07:53 08/23/16 07:11 PT 22.8 SECONDS (9.7-12.2) H 08/23/16 07:11 INR 2.0 08/23/16 07:11 - Constitutional Appears: Non-toxic, No Acute Distress - Head Exam Head Exam: ATRAUMATIC, NORMOCEPHALIC - Eye Exam Eye Exam: EOMI, Normal appearance - ENT Exam ENT Exam: Mucous Membranes Moist - Respiratory Exam Respiratory Exam: NORMAL BREATHING PATTERN. absent: Respiratory Distress - Cardiovascular Exam Cardiovascular Exam: REGULAR RHYTHM. absent: Tachycardia - GI/Abdominal Exam GI & Abdominal Exam: Soft. absent: Distended, Guarding, Tenderness, Rebound Assessment and Plan - Assessment and Plan (Free Text) Assessment: 89 y/o female w/ abdominal pain Plan: -CTA showed less than 50% stenosis at celiac origin and SMA w/ significant improved in small bowel loop wall thickening on prior study -could have been mild enteritis resolving -no surgical intervention at this time -further managment per GI and primary -cont diet -d/w Dr. Coretta Kaur PGY3
[2016-08-24 08:35] LABS: POTASSIUM 3.7 mmol/L (3.6-5.2)
[2016-08-24 08:37] LABS: BILIRUBIN,TOTAL 0.7 mg/dL (0.2-1.3)
[2016-08-24 08:38] LABS: ALB/GLOB RATIO 1.3 (1.0-2.1); CALCIUM 8.6 mg/dl (8.6-10.4); TOTAL PROTEIN 6.2 g/dL (6.3-8.3)
[2016-08-24] MEDS: Pantoprazole 40 mg EC Tab PO SCH (09:26)
--- NOTE | 2016-08-24 11:21 | CP.PCM.PN ---
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 CAT scan of the abdomen and pelvis showing no evidence of vascular problems. Continue the current trAdvance the diet. Will follow the patient Objective - Vital Signs/Intake and Output Vital Signs (last 24 hours): Temp Pulse Resp BP Pulse Ox 98.2 F 67 20 147/69 98 08/24/16 08:25 08/24/16 08:25 08/24/16 08:25 08/24/16 09:26 08/24/16 08:25 Intake and Output: 08/24/16 08/24/16 06:59 18:59 Intake Total 600 Balance 600 - Medications Medications: Current Medications Amiodarone HCl (Cordarone) 200 mg PO DAILY [facility] Last Admin: 08/24/16 09:25 Dose: 200 mg Amlodipine Besylate (Norvasc) 5 mg PO DAILY [facility] Last Admin: 08/24/16 09:26 Dose: 5 mg Levothyroxine Sodium (Synthroid) 75 mcg PO DAILY@0630 [facility] Last Admin: 08/24/16 06:29 Dose: 75 mcg Losartan Potassium (Cozaar) 25 mg PO DAILY [facility] Last Admin: 08/24/16 09:25 Dose: 25 mg Metoprolol Tartrate (Lopressor) 25 mg PO DAILY [facility] Last Admin: 08/24/16 09:26 Dose: 25 mg Pantoprazole Sodium (Protonix Ec Tab) 40 mg PO DAILY [facility] Last Admin: 08/24/16 09:26 Dose: 40 mg - Labs Labs: 08/24/16 07:53 08/24/16 07:53 PT 22.8 SECONDS (9.7-12.2) H 08/23/16 07:11 INR 2.0 08/23/16 07:11
--- NOTE | 2016-08-24 11:25 | CP.PCM.PN ---
Subjective - Date & Time of Evaluation Date of Evaluation: 08/24/16 Time of Evaluation: 11:00 - Subjective Subjective: Follow up abdom pain Covering Dr Baker Reports less abdom pain. Denies naus, vomit, fever, chills, SZ, RB, melena, cough, GARCÍA CT_ mil stenosis celiac and SMA., and atherosclerosis. Objective - Vital Signs/Intake and Output Vital Signs (last 24 hours): Temp Pulse Resp BP Pulse Ox 98.2 F 67 20 147/69 98 08/24/16 08:25 08/24/16 08:25 08/24/16 08:25 08/24/16 09:26 08/24/16 08:25 Intake and Output: 08/24/16 08/24/16 06:59 18:59 Intake Total 600 Balance 600 - Medications Medications: Current Medications Amiodarone HCl (Cordarone) 200 mg PO DAILY [facility] Last Admin: 08/24/16 09:25 Dose: 200 mg Amlodipine Besylate (Norvasc) 5 mg PO DAILY [facility] Last Admin: 08/24/16 09:26 Dose: 5 mg Enoxaparin Sodium (Lovenox) 50 mg SC Q12 [facility] Levothyroxine Sodium (Synthroid) 75 mcg PO DAILY@0630 [facility] Last Admin: 08/24/16 06:29 Dose: 75 mcg Losartan Potassium (Cozaar) 25 mg PO DAILY [facility] Last Admin: 08/24/16 09:25 Dose: 25 mg Metoprolol Tartrate (Lopressor) 25 mg PO DAILY [facility] Last Admin: 08/24/16 09:26 Dose: 25 mg Pantoprazole Sodium (Protonix Ec Tab) 40 mg PO DAILY [facility] Last Admin: 08/24/16 09:26 Dose: 40 mg - Labs Labs: 08/24/16 07:53 08/24/16 07:53 PT 22.8 SECONDS (9.7-12.2) H 08/23/16 07:11 INR 2.0 08/23/16 07:11 - Constitutional Appears: Well - Neck Exam Neck Exam: Full ROM - Respiratory Exam Respiratory Exam: Clear to Ausculation Bilateral - Cardiovascular Exam Cardiovascular Exam: RRR - GI/Abdominal Exam GI & Abdominal Exam: Soft, Normal Bowel Sounds. absent: Guarding, Tenderness, Mass, Rebound - Extremities Exam Extremities Exam: absent: Pedal Edema - Neurological Exam Neurological Exam: Alert, Oriented x3 Assessment and Plan (1) Atrial fibrillation Status: Acute (2) Hypothyroid Status: Acute (3) Abdominal pain Assessment & Plan: Improving. CT results noted. Status: Acute (4) Renal insufficiency Status: Acute
[2016-08-24] MEDS: Enoxaparin 30 mg Syringe SC SCH (22:18)
[2016-08-25] MEDS: Levothyroxine 75 MCG TAB PO SCH (06:40)
[2016-08-25 06:52] LABS: BASO % 0.6 % (0.0-2.0); EOS # 0.1 K/uL (0.0-0.7); EOS % 2.1 % (0.0-4.0); HEMATOCRIT 32.7 % (34.0-47.0); LYMPH # 1.5 K/uL (1.0-4.3); LYMPH % 25.2 % (20.0-40.0); MEAN CELL VOLUME 98.2 fL (81.0-99.0); MEAN CORPUSCULAR HEMOGLOBIN 33.1 pg (27.0-31.0); MEAN CORPUSCULAR HGB CONC 33.7 g/dL (33.0-37.0); MEAN PLATELET VOLUME 8.3 fL (7.2-11.7); MONO # 0.6 K/uL (0.0-0.8); MONO % 10.1 % (0.0-10.0); RED CELL DISTRIBUTION WIDTH 14.2 % (11.5-14.5); WHITE BLOOD COUNT 6.1 K/uL (4.8-10.8)
[2016-08-25 07:07] LABS: ALB/GLOB RATIO 1.2 (1.0-2.1); BILIRUBIN,TOTAL 0.7 mg/dL (0.2-1.3); CALCIUM 8.9 mg/dl (8.6-10.4); POTASSIUM 3.9 mmol/L (3.6-5.2); TOTAL PROTEIN 6.4 g/dL (6.3-8.3)
[2016-08-25] MEDS: Pantoprazole 40 mg EC Tab PO SCH (10:28)
[2016-08-25] MEDS: Enoxaparin 30 mg Syringe SC SCH ×2 (10:28→21:30)
--- NOTE | 2016-08-25 17:38 | CP.PCM.PN ---
Subjective - Date & Time of Evaluation Date of Evaluation: 08/25/16 Time of Evaluation: 17:37 - Subjective Subjective: patient is tolerating the regular diet now. No abdominal pain. Will resume the Coumadin. Will follow the patient Objective - Vital Signs/Intake and Output Vital Signs (last 24 hours): Temp Pulse Resp BP Pulse Ox 97.4 F L 57 L 20 148/74 97 08/25/16 15:00 08/25/16 15:00 08/25/16 15:00 08/25/16 15:00 08/25/16 15:00 Intake and Output: 08/25/16 08/25/16 06:59 18:59 Intake Total 400 500 Balance 400 500 - Medications Medications: Current Medications Amiodarone HCl (Cordarone) 200 mg PO DAILY [facility] Last Admin: 08/25/16 10:28 Dose: 200 mg Amlodipine Besylate (Norvasc) 5 mg PO DAILY [facility] Last Admin: 08/25/16 10:28 Dose: 5 mg Enoxaparin Sodium (Lovenox) 50 mg SC Q12 [facility] Last Admin: 08/25/16 10:28 Dose: 50 mg Levothyroxine Sodium (Synthroid) 75 mcg PO DAILY@0630 [facility] Last Admin: 08/25/16 06:40 Dose: 75 mcg Losartan Potassium (Cozaar) 25 mg PO DAILY [facility] Last Admin: 08/25/16 10:28 Dose: 25 mg Metoprolol Tartrate (Lopressor) 25 mg PO DAILY [facility] Last Admin: 08/25/16 10:28 Dose: 25 mg Pantoprazole Sodium (Protonix Ec Tab) 40 mg PO DAILY [facility] Last Admin: 08/25/16 10:28 Dose: 40 mg - Labs Labs: 08/25/16 06:37 08/25/16 06:37 PT 22.8 SECONDS (9.7-12.2) H 08/23/16 07:11 INR 2.0 08/23/16 07:11
[2016-08-26] MEDS: Levothyroxine 75 MCG TAB PO SCH (06:31)
[2016-08-26 08:36] LABS: BASO % 0.6 % (0.0-2.0); EOS # 0.1 K/uL (0.0-0.7); EOS % 1.9 % (0.0-4.0); HEMATOCRIT 35.8 % (34.0-47.0); LYMPH # 1.7 K/uL (1.0-4.3); LYMPH % 25.6 % (20.0-40.0); MEAN CELL VOLUME 98.5 fL (81.0-99.0); MEAN CORPUSCULAR HEMOGLOBIN 32.8 pg (27.0-31.0); MEAN CORPUSCULAR HGB CONC 33.3 g/dL (33.0-37.0); MEAN PLATELET VOLUME 8.9 fL (7.2-11.7); MONO # 0.6 K/uL (0.0-0.8); MONO % 9.4 % (0.0-10.0); NRBC % 0.1 % (0.0-2.0); RED CELL DISTRIBUTION WIDTH 14.9 % (11.5-14.5); WHITE BLOOD COUNT 6.7 K/uL (4.8-10.8)
[2016-08-26 08:53] LABS: POTASSIUM 3.9 mmol/L (3.6-5.2)
[2016-08-26 08:55] LABS: BILIRUBIN,TOTAL 0.7 mg/dL (0.2-1.3)
[2016-08-26 08:56] LABS: ALB/GLOB RATIO 1.3 (1.0-2.1); CALCIUM 9.5 mg/dl (8.6-10.4); TOTAL PROTEIN 7.4 g/dL (6.3-8.3)
[2016-08-26] MEDS: Pantoprazole 40 mg EC Tab PO SCH (09:45)
[2016-08-26] MEDS: Enoxaparin 30 mg Syringe SC SCH (09:45)
[2016-08-26 13:38] LABS: THYROID STIMULATING HORMONE 25.3 mIU/L (0.46-4.68)
--- NOTE | 2016-08-26 15:40 | CP.PCM.PN ---
Subjective - Date & Time of Evaluation Date of Evaluation: 08/26/16 Time of Evaluation: 15:40 - Subjective Subjective: DISCUSSED WITH DR. SIMON D/C HOME TODAY. TSH LEVELS ADDED TO MORNING LABS AND RESULTED; LEVELS ARE STILL ABNORMAL BUT HAVE IMPROVED SINCE LEVOTHYROXINE DOSE INCREASED. DISCUSSED WITH PT AT LENGTH NEW DOSE FOR LEVOTHYROXINE; NEW RX PROTONIX. ALL OTHER MEDS TO BE CONTINUED. PT WILL F/U WITH DR. SIMON IN THE OFFICE NEXT WEEK. SHE WILL ALSO F/U WITH GI IN 1-2 WEEKS. FAMILY TO PICK HER UP. D/C DISCUSSED WITH PRIMARY RN YUSUF. NO FURTHER ORDERS. Objective - Vital Signs/Intake and Output Vital Signs (last 24 hours): Temp Pulse Resp BP Pulse Ox 98.2 F 63 20 125/67 98 08/26/16 08:00 08/26/16 08:00 08/26/16 08:00 08/26/16 09:46 08/26/16 08:00 Intake and Output: 08/26/16 08/26/16 06:59 18:59 Intake Total 180 Balance 180 - Medications Medications: Current Medications Amiodarone HCl (Cordarone) 200 mg PO DAILY [facility] Last Admin: 08/26/16 09:45 Dose: 200 mg Amlodipine Besylate (Norvasc) 5 mg PO DAILY [facility] Last Admin: 08/26/16 09:45 Dose: 5 mg Enoxaparin Sodium (Lovenox) 50 mg SC Q12 [facility] Last Admin: 08/26/16 09:45 Dose: 50 mg Levothyroxine Sodium (Synthroid) 75 mcg PO DAILY@0630 [facility] Last Admin: 08/26/16 06:31 Dose: 75 mcg Losartan Potassium (Cozaar) 25 mg PO DAILY [facility] Last Admin: 08/26/16 09:45 Dose: 25 mg Metoprolol Tartrate (Lopressor) 25 mg PO DAILY [facility] Last Admin: 08/26/16 09:46 Dose: 25 mg Pantoprazole Sodium (Protonix Ec Tab) 40 mg PO DAILY [facility] Last Admin: 08/26/16 09:45 Dose: 40 mg - Labs Labs: 08/26/16 08:23 08/26/16 08:23 PT 22.8 SECONDS (9.7-12.2) H 08/23/16 07:11 INR 2.0 08/23/16 07:11
[2016-08-26 16:58] VITALS: BP 156/64; PULSE 59; RESP 18; TEMP 97.7; O2SAT 100
--- NOTE | 2016-09-05 12:30 | CP.PCM.PN ---
Subjective - Date & Time of Evaluation Date of Evaluation: 08/21/16 Time of Evaluation: 12:30 - Subjective Subjective: Chief complaint: Abdominal pain History present illness: 89-year-old female with history of aortic regurgitation, atrial fibrillation, hypertension, hyperlipidemia on anticoagulation. Recently diagnosed with hypothyroidism. Started on levothyroxine. Patient called me office today in the morning, at the time she was complaining of abdominal pain. Patient started noticing pain since 2 days. Swelling got worse. The pain was mostly in the epigastric and right upper abdominal area, sometimes radiating to the lower abdominal region. She does not have any urinary symptoms. No fever or chills noted, denies any nausea vomiting. Patient did have a symptoms of lower back pain in the past, hospitalized with a severe lower back pain. Currently having no nausea, but abdominal pain worsening slowly. Surgical history: Cholecystectomy. Had a colonoscopy in 2014. Bilateral cataract surgery. Patient is on Coumadin for atrial fibrillation Allergy: No known drug allergy Personal history: Patient is a nonsmoker, nonalcoholic, currently independent and able to manage herself at home. Family history noncontributory. Both parents many years ago. 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 At that time TSH was 38.9. 2 weeks ago patient started on levothyroxine 25 g CAT scan of the abdomen nonspecific today. Assessment and a condition: 89-year-old female with history of hypertension high cholesterol A. fib defibrillation hypothyroidism spinal stenosis lower back pain on anticoagulation history of cholecystectomy came to the emergency room with the abdominal pain. Unclear at this time, most likely nonspecific abdominal pain. Acute gastritis cannot be ruled out. There is a gastroenteritis possible. We will start the patient on IV fluid. Acute on chronic renal insufficiency noted. We'll get a GI evaluation. TSH monitoring. DVT GI prophylaxis and will follow the patient patient is seen by GI. Suggested surgical evaluation, and also CT angiogram pending currently. Objective - Vital Signs/Intake and Output Vital Signs (last 24 hours): Temp Pulse Resp BP Pulse Ox 97.7 F 59 L 18 156/64 H 100 08/26/16 15:00 08/26/16 15:00 08/26/16 15:00 08/26/16 15:00 08/26/16 15:00 - Labs Labs: 08/26/16 08:23 08/26/16 08:23 PT 22.8 SECONDS (9.7-12.2) H 08/23/16 07:11 INR 2.0 08/23/16 07:11
--- NOTE | 2016-09-05 12:33 | CP.PCM.DIS ---
Provider - Provider Date of Admission: 08/20/16 22:48 Attending physician: Sharee Simon MD Time Spent in preparation of Discharge (in minutes): 45 Hospital Course - Lab Results Lab Results: Most Recent Lab Values WBC 6.7 K/uL (4.8-10.8) 08/26/16 08:23 RBC 3.64 Mil/uL (3.80-5.20) L 08/26/16 08:23 Hgb 11.9 g/dL (11.0-16.0) 08/26/16 08:23 Hct 35.8 % (34.0-47.0) 08/26/16 08:23 MCV 98.5 fL (81.0-99.0) 08/26/16 08:23 MCH 32.8 pg (27.0-31.0) H 08/26/16 08:23 MCHC 33.3 g/dL (33.0-37.0) 08/26/16 08:23 RDW 14.9 % (11.5-14.5) H 08/26/16 08:23 Plt Count 160 K/uL (130-400) 08/26/16 08:23 MPV 8.9 fL (7.2-11.7) 08/26/16 08:23 Neut % (Auto) 62.5 % (50.0-75.0) 08/26/16 08:23 Lymph % (Auto) 25.6 % (20.0-40.0) 08/26/16 08:23 [place] % (Auto) 9.4 % (0.0-10.0) 08/26/16 08:23 Eos % (Auto) 1.9 % (0.0-4.0) 08/26/16 08:23 Baso % (Auto) 0.6 % (0.0-2.0) 08/26/16 08:23 Neut # 4.2 K/uL (1.8-7.0) 08/26/16 08:23 Lymph # 1.7 K/uL (1.0-4.3) 08/26/16 08:23 [place] # 0.6 K/uL (0.0-0.8) 08/26/16 08:23 Eos # 0.1 K/uL (0.0-0.7) 08/26/16 08:23 Baso # 0.0 K/uL (0.0-0.2) 08/26/16 08:23 Differential Comment 08/21/16 21:00 Retic Count 1.0 % (0.5-1.5) 08/23/16 07:11 PT 22.8 SECONDS (9.7-12.2) H 08/23/16 07:11 INR 2.0 08/23/16 07:11 Sodium 140 mmol/L (132-148) 08/26/16 08:23 Potassium 3.9 mmol/L (3.6-5.2) 08/26/16 08:23 Chloride 99 mmol/L (98-107) 08/26/16 08:23 Carbon Dioxide 26 mmol/L (22-30) 08/26/16 08:23 Anion Gap 18 (10-20) 08/26/16 08:23 BUN 20 mg/dL (7-17) H 08/26/16 08:23 Creatinine 1.2 MG/DL (0.7-1.2) 08/26/16 08:23 Est GFR ( Amer) 51 08/26/16 08:23 Est GFR (Non-Af Amer) 42 08/26/16 08:23 Random Glucose 90 mg/dL (65-105) 08/26/16 08:23 Lactic Acid 1.0 mmol/L (0.7-2.1) 08/21/16 21:00 Calcium 9.5 mg/dl (8.6-10.4) 08/26/16 08:23 Phosphorus 3.1 mg/dL (2.5-4.5) 08/21/16 21:00 Magnesium 2.0 mg/dL (1.6-2.3) 08/21/16 21:00 Total Bilirubin 0.7 mg/dL (0.2-1.3) 08/26/16 08:23 AST 30 U/L (14-36) 08/26/16 08:23 ALT 23 U/L (9-52) 08/26/16 08:23 Alkaline Phosphatase 48 U/L (38-126) 08/26/16 08:23 Total Protein 7.4 g/dL (6.3-8.3) 08/26/16 08:23 Albumin 4.1 g/dL (3.5-5.0) 08/26/16 08:23 Globulin 3.3 gm/dL (2.2-3.9) 08/26/16 08:23 Albumin/Globulin Ratio 1.3 (1.0-2.1) 08/26/16 08:23 Amylase 219 U/L (30-110) H 08/22/16 11:20 Lipase 90 U/L (23-300) 08/22/16 11:20 Vitamin B12 961 pg/mL (239-931) H 08/23/16 07:11 Folate 18.6 ng/mL 08/23/16 07:11 TSH 3rd Generation 25.30 mIU/L (0.46-4.68) H 08/26/16 08:23 Urine Color Straw (YELLOW) 08/20/16 21:39 Urine Clarity Clear (Clear) 08/20/16 21:39 Urine pH 7.0 (5.0-8.0) 08/20/16 21:39 Ur Specific [place] 1.012 (1.003-1.030) 08/20/16 21:39 Urine Protein Negative mg/dL (NEGATIVE) 08/20/16 21:39 Urine Glucose (UA) Normal mg/dL (Normal) 08/20/16 21:39 Urine Ketones Negative mg/dL (NEGATIVE) 08/20/16 21:39 Urine Blood Negative (NEGATIVE) 08/20/16 21:39 Urine Nitrate Negative (NEGATIVE) 08/20/16 21:39 Urine Bilirubin Negative (NEGATIVE) 08/20/16 21:39 Urine Urobilinogen Normal mg/dL (0.2-1.0) 08/20/16 21:39 Ur Leukocyte Esterase Negative Saqib/uL (Negative) 08/20/16 21:39 Urine WBC (Auto) 1 /hpf (0-5) 08/20/16 21:39 Urine RBC (Auto) 1 /hpf (0-3) 08/20/16 21:39 Ur Squamous Epith Cells < 1 /hpf (0-5) 08/20/16 21:39 Stool Occult Blood Negative (NEGATIVE) 08/22/16 14:08 - Hospital Course Hospital Course: Chief complaint: Abdominal pain History present illness: 89-year-old female with history of aortic regurgitation, atrial fibrillation, hypertension, hyperlipidemia on anticoagulation. Recently diagnosed with hypothyroidism. Started on levothyroxine. Patient called me office today in the morning, at the time she was complaining of abdominal pain. Patient started noticing pain since 2 days. Swelling got worse. The pain was mostly in the epigastric and right upper abdominal area, sometimes radiating to the lower abdominal region. She does not have any urinary symptoms. No fever or chills noted, denies any nausea vomiting. Patient did have a symptoms of lower back pain in the past, hospitalized with a severe lower back pain. Currently having no nausea, but abdominal pain worsening slowly. Surgical history: Cholecystectomy. Had a colonoscopy in 2014. Bilateral cataract surgery. Patient is on Coumadin for atrial fibrillation Allergy: No known drug allergy Personal history: Patient is a nonsmoker, nonalcoholic, currently independent and able to manage herself at home. Family history noncontributory. Both parents many years ago. 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 At that time TSH was 38.9. 2 weeks ago patient started on levothyroxine 25 g CAT scan of the abdomen nonspecific today. Assessment and a condition: 89-year-old female with history of hypertension high cholesterol A. fib defibrillation hypothyroidism spinal stenosis lower back pain on anticoagulation history of cholecystectomy came to the emergency room with the abdominal pain. Unclear at this time, most likely nonspecific abdominal pain. Acute gastritis cannot be ruled out. There is a gastroenteritis possible. We will start the patient on IV fluid. Acute on chronic renal insufficiency noted. We'll get a GI evaluation. TSH monitoring. DVT GI prophylaxis and will follow the patient Patient initially had renal insufficiency and dehydration. IV fluid and fluid intake increase to. Labs got better. Seen by tree marker to, and also director surgical. CT of the abdomen and pelvis with the angiogram, showing no evidence of any arterial insufficiency. Advice medical management. Patient clinically improved. Will continue the current treatment. Clinically stable. She will go home, and follow up as an outpatient. She'll continue Coumadin medications reviewed Discharge Exam - Head Exam Head Exam: ATRAUMATIC, NORMOCEPHALIC Discharge Plan - Discharge Medications Prescriptions: Pantoprazole [Protonix EC Tab] 40 mg PO DAILY #30 ect Levothyroxine [Synthroid] 75 mcg PO DAILY@0630 #30 tab - Follow Up Plan Condition: STABLE Disposition: HOME/ ROUTINE Instructions: Renal Failure Diet (DC), Acute Abdominal Pain (DC), Acute Abdominal Pain (GEN) Additional Instructions: FOLLOW UP WITH DR. SIMON IN THE OFFICE NEXT WEEK---CALL TOMORROW TO MAKE YOUR APPT. FOLLOW UP WITH THE STOMACH DOCTOR (EITHER ONE IS FINE) IN THE OFFICE WITHIN 1-2 WEEKS---CALL TOMORROW TO MAKE YOUR APPT. CONTINUE ALL MEDICATIONS AT HOME. FOR YOUR STOMACH, CONTINUE TAKING PROTONIX ( MAY BE SUBSTITUTED BY YOUR PHARMACY IF NOT AVAILABLE). YOUR THYROID MEDICINE HAS BEEN INCREASED (MAKE SURE YOU TAKE 75 MCG PER DAY). FOR FURTHER QUESTIONS, CONTACT DR. SIMON'S OFFICE. Referrals: Mkie Hitchcock Jr., MD [Staff Provider] - Alejandro Simon MD [Non-Staff] - Leobardo Milner MD [Staff Provider] - Kel Baker MD [Staff Provider] -
== END 2016-08-26 18:45 | disposition home or self-care (01) | DRG 392 ==
LOC: C.ER 19:01 → C.9E 22:48 → C.3T 23:24
PROVIDERS: ADMIT Internal Medicine; ATTEND Internal Medicine
DX: R10.13 Epigastric pain (principal); I48.91 Unspecified atrial fibrillation; I35.1 Nonrheumatic aortic (valve) insufficiency; E86.0 Dehydration; E03.9 Hypothyroidism, unspecified; I10 Essential (primary) hypertension; E78.5 Hyperlipidemia, unspecified; N28.9 Disorder of kidney and ureter, unspecified; G47.00 Insomnia, unspecified; K59.00 Constipation, unspecified; M19.90 Unspecified osteoarthritis, unspecified site; Z79.01 Long term (current) use of anticoagulants; Z90.49 Acquired absence of other specified parts of digestive tract; Z98.42 Cataract extraction status, left eye; Z98.41 Cataract extraction status, right eye; Z23 Encounter for immunization

== ENCOUNTER 2017-01-09 10:09 | Observation (INO) | payer MEDICARE, OTHER ==
[2017-01-09 10:09] VITALS: BMI 24.6
[2017-01-09 11:47] LABS: BASO % 0.3 % (0.0-2.0); EOS % 0.7 % (0.0-4.0); HEMATOCRIT 39.6 % (34.0-47.0); LYMPH # 0.8 K/uL (1.0-4.3); LYMPH % 11.9 % (20.0-40.0); MEAN CELL VOLUME 97.7 fL (81.0-99.0); MEAN CORPUSCULAR HEMOGLOBIN 32.6 pg (27.0-31.0); MEAN CORPUSCULAR HGB CONC 33.3 g/dL (33.0-37.0); MEAN PLATELET VOLUME 8.4 fL (7.2-11.7); MONO # 0.5 K/uL (0.0-0.8); MONO % 8.5 % (0.0-10.0); NRBC % 0.1 % (0.0-2.0); RED CELL DISTRIBUTION WIDTH 13.7 % (11.5-14.5); WHITE BLOOD COUNT 6.4 K/uL (4.8-10.8)
[2017-01-09 11:57] LABS: ALKALINE PHOSPHATASE 48 U/L (38-126); ALT/SGPT 39 U/L (9-52); AST/SGOT 32 U/L (14-36); BILIRUBIN,TOTAL 0.6 mg/dL (0.2-1.3); BLOOD UREA NITROGEN 36 mg/dL (7-17); CALCIUM 9.1 mg/dl (8.6-10.4); CARBON DIOXIDE 30 mmol/L (22-30); CHLORIDE 101 mmol/L (98-107); GFR AFRICAN-AMERICAN 40; GLUCOSE,RANDOM 108 mg/dL (65-105); INR 3.1; POTASSIUM 5.1 mmol/L (3.6-5.2); SODIUM 139 mmol/L (132-148)
--- NOTE | 2017-01-09 12:02 | RAD ---
PROCEDURE: CHEST RADIOGRAPH, 1 VIEW HISTORY: upper back pain/ subjective fever COMPARISON: Portable chest 02/28/2015. FINDINGS: LUNGS: Linear atelectasis or interval fibrosis in the inferior left lung zone. No alveolar infiltrate bilaterally. PLEURA: No pneumothorax or pleural fluid seen. CARDIOVASCULAR: Normal. OSSEOUS STRUCTURES: No significant abnormalities. VISUALIZED UPPER ABDOMEN: Normal. OTHER FINDINGS: None. IMPRESSION: No definite interval cardiopulmonary disease appreciated other than linear atelectasis at the inferior left lung zone versus interval potential fibrosis.
[2017-01-09 12:16] LABS: URINE BILIRUBIN NEGATIVE (NEGATIVE); URINE BLOOD 1+ (NEGATIVE); URINE COLOR Straw (YELLOW); URINE GLUCOSE (UA) NORMAL (Normal); URINE KETONE NEGATIVE (NEGATIVE); URINE LEUKOCYTE ESTERASE NEG Leu/uL (Negative); URINE PROTEIN NEGATIVE (NEGATIVE); URINE UROBILINOGEN NORMAL mg/dL (0.2-1.0); WBC URINE < 1 /hpf (0-5)
[2017-01-09 12:24] LABS: RBC URINE 2 /hpf (0-3)
--- NOTE | 2017-01-09 14:49 | C.PDOC ---
History Of Present Illness 89 y/o female, with PMHx of COPD, presents to ED for evaluation of chronic upper back pain for the past 3 weeks. Pt reports being evaluated by PMD, had CT scan of her chest done, but has not followed up with PMD for the results. Pt complaints of generalized weakness, vomiting and diarrhea. Denies recent antibiotic use. Denies abdominal pain, fever, or other complaints. Time Seen by Provider: 01/09/17 10:34 Chief Complaint (Nursing): GI Problem History Per: Patient History/Exam Limitations: no limitations Onset/Duration Of Symptoms: Days Current Symptoms Are (Timing): Still Present Quality Of Discomfort: "Pain" Associated Symptoms: Vomiting, Diarrhea, Back Pain. denies: Loss Of Appetite, Constipation, Urinary Symptoms Exacerbating Factors: None Alleviating Factors: None Recent travel outside of the [place]: No Additional History Per: Patient Abnormal Vaginal Bleeding: No Past Medical History Reviewed: Historical Data, Nursing Documentation, Vital Signs Vital Signs: Last Vital Signs Temp 98.2 F 01/09/17 17:30 Pulse 55 L 01/09/17 17:30 Resp 20 01/09/17 17:30 BP 140/51 L 01/09/17 17:30 Pulse Ox 97 01/09/17 17:30 - Medical History PMH: Arthritis, Gastritis, HTN, Hypothyroidism Denies: Chronic Kidney Disease Surgical History: Cholecystectomy - [facility] Procedures CLOSED ENDOSCOPIC BIOPSY OF LARGE INTESTINE (07/10/14) ESOPHAGOGASTRODUODENOSCOPY [EGD] W/CLOSED BIOPSY (07/17/14) Family History: States: Unknown Family Hx - Social History Hx Tobacco Use: No Hx Alcohol Use: No Hx Substance Use: No - Immunization History Hx Tetanus Toxoid Vaccination: No Hx Influenza Vaccination: Yes Hx Pneumococcal Vaccination: Yes Review Of Systems Except As Marked, All Systems Reviewed And Found Negative. Constitutional: Positive for: Weakness. Negative for: Fever, Chills Cardiovascular: Negative for: Chest Pain Respiratory: Negative for: Shortness of Breath Gastrointestinal: Positive for: Nausea, Vomiting, Diarrhea. Negative for: Abdominal Pain, Constipation Genitourinary: Negative for: Dysuria, Frequency, Hematuria Musculoskeletal: Positive for: Back Pain Physical Exam - Physical Exam Appears: Non-toxic, No Acute Distress Skin: Normal Color, Warm, Dry Head: Atraumatic, Normacephalic Eye(s): bilateral: Normal Inspection Oral Mucosa: Dry Cardiovascular: Rhythm Regular, No Murmur Respiratory: Normal Breath Sounds, No Rales, No Rhonchi, No Wheezing Gastrointestinal/Abdominal: Normal Exam, Soft, No Tenderness, No Guarding, No Rebound Extremity: Normal ROM Neurological/Psych: Oriented x3, Normal Speech ED Course And Treatment - Laboratory Results Result Diagrams: 01/09/17 11:43 01/09/17 11:43 O2 Sat by Pulse Oximetry: 97 Pulse Ox Interpretation: Normal Progress Note: Labs consistent with dehydration. Case discussed with Dr. Rutledge who agrees to place pt on observation for IV hydration. Disposition - Disposition Disposition: HOSPITALIZED Disposition Time: 14:48 Condition: FAIR - Clinical Impression Clinical Impression: Gastroenteritis, Chronic back pain, Dehydration - PA / CONTROL PANEL BUILDER / Resident Statement MD/DO has reviewed & agrees with the documentation as recorded. - Scribe Statement The provider has reviewed the documentation as recorded by the Scribe Aiden Claire All medical record entries made by the Scribe were at my direction and personally dictated by me. I have reviewed the chart and agree that the record accurately reflects my personal performance of the history, physical exam, medical decision making, and the department course for this patient. I have also personally directed, reviewed, and agree with the discharge instructions and disposition. Decision To Admit - Pt Status Changed To: Hospital Disposition Of: Observation - . Bed Request Type: Regular Admitting Physician: Sharee Rutledge Patient Diagnosis: Gastroenteritis, Chronic back pain, Dehydration
[2017-01-09] MEDS ORDERED: Sodium Chloride 0.9% 1,000 ML IV STA (15:05)
[2017-01-09] MEDS ORDERED: Sodium Chloride 0.9% 1,000 ML ONE (15:42)
--- NOTE | 2017-01-09 21:17 | CP.PCM.HP ---
Past Patient History - Past Medical History & Family History Past Medical History?: Yes - Past Social History Smoking Status: Never Smoked - CARDIAC Hx Hypertension: Yes - PULMONARY Hx Respiratory Disorders: No - NEUROLOGICAL Hx Neurological Disorder: No - HEENT Hx HEENT Problems: No - RENAL Hx Chronic Kidney Disease: No - ENDOCRINE/METABOLIC Hx Hypothyroidism: Yes - HEMATOLOGICAL/ONCOLOGICAL Hx Blood Disorders: No - INTEGUMENTARY Hx Dermatological Problems: No - MUSCULOSKELETAL/RHEUMATOLOGICAL Hx Arthritis: Yes Hx Falls: No - GASTROINTESTINAL Hx Gastritis: Yes - GENITOURINARY/GYNECOLOGICAL Hx Genitourinary Disorders: No - PSYCHIATRIC Hx Substance Use: No - SURGICAL HISTORY Hx Cholecystectomy: Yes - ANESTHESIA Hx Anesthesia: Yes Hx Anesthesia Reactions: No Hx Malignant Hyperthermia: No Meds Allergies/Adverse Reactions: Allergies Allergy/AdvReac Type Severity Reaction Status Date / Time No Known Allergies Allergy Verified 01/09/17 10:20 Results - Vital Signs Recent Vital Signs: Last Vital Signs Temp 97.4 F L 01/09/17 18:15 Pulse 61 01/09/17 18:15 Resp 20 01/09/17 18:15 BP 178/68 H 01/09/17 18:15 Pulse Ox 97 01/09/17 18:18 - Labs Result Diagrams: 01/09/17 11:43 01/09/17 11:43 Labs: Laboratory Results - last 24 hr 01/09/17 01/09/17 01/09/17 11:43 11:43 11:43 WBC 6.4 RBC 4.05 Hgb 13.2 Hct 39.6 MCV 97.7 MCH 32.6 H MCHC 33.3 RDW 13.7 Plt Count 155 MPV 8.4 Neut % (Auto) 78.6 H Lymph % (Auto) 11.9 L [place] % (Auto) 8.5 Eos % (Auto) 0.7 Baso % (Auto) 0.3 Neut # 5.1 Lymph # 0.8 L [place] # 0.5 Eos # 0.0 Baso # 0.0 PT 36.5 H* INR 3.1 APTT 44 H Sodium 139 Potassium 5.1 Chloride 101 Carbon Dioxide 30 Anion Gap 14 BUN 36 H Creatinine 1.5 H Est GFR ( Amer) 40 Est GFR (Non-Af Amer) 33 Random Glucose 108 H Lactic Acid Calcium 9.1 Total Bilirubin 0.6 AST 32 ALT 39 Alkaline Phosphatase 48 Total Creatine Kinase 84 CK-MB (Mass) 1.08 Troponin I < 0.0120 Total Protein 9.0 H Albumin 4.5 Globulin 4.5 H Albumin/Globulin Ratio 1.0 Urine Color Urine Clarity Urine pH Ur Specific [place] Urine Protein Urine Glucose (UA) Urine Ketones Urine Blood Urine Nitrate Urine Bilirubin Urine Urobilinogen Ur Leukocyte Esterase Urine WBC (Auto) Urine RBC (Auto) Ur Squamous Epith Cells 01/09/17 01/09/17 11:52 12:07 WBC RBC Hgb Hct MCV MCH MCHC RDW Plt Count MPV Neut % (Auto) Lymph % (Auto) [place] % (Auto) Eos % (Auto) Baso % (Auto) Neut # Lymph # [place] # Eos # Baso # PT INR APTT Sodium Potassium Chloride Carbon Dioxide Anion Gap BUN Creatinine Est GFR ( Amer) Est GFR (Non-Af Amer) Random Glucose Lactic Acid 1.2 Calcium Total Bilirubin AST ALT Alkaline Phosphatase Total Creatine Kinase CK-MB (Mass) Troponin I Total Protein Albumin Globulin Albumin/Globulin Ratio Urine Color Straw Urine Clarity Clear Urine pH 6.0 Ur Specific [place] 1.008 Urine Protein Negative Urine Glucose (UA) Normal Urine Ketones Negative Urine Blood 1+ H Urine Nitrate Negative Urine Bilirubin Negative Urine Urobilinogen Normal Ur Leukocyte Esterase Neg Urine WBC (Auto) < 1 Urine RBC (Auto) 2 Ur Squamous Epith Cells < 1
[2017-01-09] MEDS ORDERED: Sodium Chloride 0.45% 1,000 ML IV SCH (21:30)
[2017-01-10] MEDS: Levothyroxine 75 MCG TAB PO SCH (06:44)
[2017-01-10] MEDS: Metoprolol Succinate 50 mg XL Tab PO SCH (09:57)
[2017-01-10] MEDS: Potassium Chloride 10 mEq ER Tab PO SCH (09:59)
[2017-01-10] MEDS: Multiple Vitamins Tab PO SCH (09:59)
[2017-01-10] MEDS ORDERED: Ergocalciferol 50,000 Intl Units Cap PO SCH (10:00)
[2017-01-10] MEDS ORDERED: Pantoprazole 40 mg EC Tab PO SCH (10:00)
[2017-01-10] MEDS: Promethazine 6.25 MG/5 ML CUP PO PRN (21:45)
[2017-01-11] MEDS: Promethazine 6.25 MG/5 ML CUP PO PRN (05:37)
[2017-01-11] MEDS: Levothyroxine 75 MCG TAB PO SCH (06:22)
[2017-01-11 08:12] VITALS: BP 146/63; PULSE 60; RESP 20; TEMP 97.9; O2SAT 97
[2017-01-11 08:25] LABS: BASO # 0.1 K/uL (0.0-0.2); BASO % 0.6 % (0.0-2.0); EOS # 0.1 K/uL (0.0-0.7); EOS % 1.6 % (0.0-4.0); HEMATOCRIT 35.1 % (34.0-47.0); INR 2.7; LYMPH # 1.2 K/uL (1.0-4.3); LYMPH % 14.4 % (20.0-40.0); MEAN CELL VOLUME 97.2 fL (81.0-99.0); MEAN CORPUSCULAR HEMOGLOBIN 32.8 pg (27.0-31.0); MEAN CORPUSCULAR HGB CONC 33.7 g/dL (33.0-37.0); MEAN PLATELET VOLUME 8.4 fL (7.2-11.7); MONO # 1.1 K/uL (0.0-0.8); MONO % 12.8 % (0.0-10.0); RED CELL DISTRIBUTION WIDTH 13.7 % (11.5-14.5); WHITE BLOOD COUNT 8.4 K/uL (4.8-10.8)
[2017-01-11 09:03] LABS: ALB/GLOB RATIO 1.1 (1.0-2.1); BILIRUBIN,TOTAL 0.3 mg/dL (0.2-1.3); CALCIUM 8.4 mg/dl (8.6-10.4); POTASSIUM 4.1 mmol/L (3.6-5.2); TOTAL PROTEIN 7.4 g/dL (6.3-8.3)
[2017-01-11] MEDS: Multiple Vitamins Tab PO SCH (10:19)
[2017-01-11] MEDS: Potassium Chloride 10 mEq ER Tab PO SCH (10:21)
[2017-01-11] MEDS: Metoprolol Succinate 50 mg XL Tab PO SCH (10:25)
--- NOTE | 2017-01-12 18:02 | CARD ---
APPROVED REPORT EKG Measurement Heart [id number] <Conclusion> Sinus rhythm with 1st degree AV block Otherwise normal ECG
== END 2017-01-11 13:28 | disposition home or self-care (01) ==
LOC: C.ER 10:09 → C.9E 14:49 → C.3T 17:04
PROVIDERS: ADMIT Internal Medicine; ATTEND Internal Medicine
DX: M54.9 Dorsalgia, unspecified (principal); E03.9 Hypothyroidism, unspecified; G89.29 Other chronic pain; I10 Essential (primary) hypertension; E86.0 Dehydration; J44.9 Chronic obstructive pulmonary disease, unspecified; K52.9 Noninfective gastroenteritis and colitis, unspecified; Z90.49 Acquired absence of other specified parts of digestive tract
CPT/HCPCS: 36415; 71010; 80053; 81001; 82550; 82553; 83605; 84484; 85025; 85610; 85730; 87040; 87086; 93005; 97116; 97161; 99285; C9113; G0378; G8978; G8979; G8980; J7030; J7040

== ENCOUNTER 2017-09-18 19:39 | Inpatient (IN) | payer MEDICARE, OTHER ==
[2017-09-18 19:39] VITALS: BMI 24.6
--- NOTE | 2017-09-18 20:12 | C.PDOC ---
History Of Present Illness 89 year old female presents to the emergency department status-post experiencing a syncopal episode. Patient reports that last night she was sitting on the commode and thinks that she fell asleep and fell on her face. Patient states that she woke up on the bathroom floor and does not have any recollection of the actual event, other than sitting on the commode. She presents to the emergency department today due to bruising on her forehead. She denies fever, chills, nausea, and vomiting. Time Seen by Provider: 09/18/17 20:12 Chief Complaint (Nursing): Syncope History Per: Patient History/Exam Limitations: no limitations Onset/Duration Of Symptoms: Days (1) Current Symptoms Are (Timing): Still Present Activity At Onset Of Symptoms: Sitting Fall Associated With With Symptoms: Positive Injury (facial bruising) - Symptoms Of CVA Current Coumadin Use?: Yes Past Medical History Reviewed: Historical Data, Nursing Documentation, Vital Signs Vital Signs: Last Vital Signs Temp 98.0 F 09/18/17 19:54 Pulse 56 L 09/18/17 19:54 Resp 20 09/18/17 19:54 BP 212/76 H 09/18/17 19:54 Pulse Ox 98 09/18/17 21:44 - Medical History PMH: Arthritis, Gastritis, HTN, Hypothyroidism Denies: Chronic Kidney Disease Surgical History: Cholecystectomy - [facility] Procedures CLOSED ENDOSCOPIC BIOPSY OF LARGE INTESTINE (07/10/14) ESOPHAGOGASTRODUODENOSCOPY [EGD] W/CLOSED BIOPSY (07/17/14) Family History: States: No Known Family Hx - Social History Hx Tobacco Use: No Hx Alcohol Use: No Hx Substance Use: No - Immunization History Hx Tetanus Toxoid Vaccination: No Hx Influenza Vaccination: Yes Hx Pneumococcal Vaccination: Yes Review Of Systems Constitutional: Negative for: Fever, Chills Eyes: Negative for: Vision Change ENT: Negative for: Throat Pain Cardiovascular: Negative for: Chest Pain Respiratory: Negative for: Shortness of Breath Gastrointestinal: Negative for: Nausea, Vomiting Genitourinary: Negative for: Dysuria Musculoskeletal: Negative for: Back Pain Skin: Positive for: Bruising (facial) Neurological: Positive for: Other (syncopal episode). Negative for: Weakness Psych: Negative for: Anxiety Physical Exam - Physical Exam Appears: Non-toxic, No Acute Distress Skin: Warm, Dry, Ecchymosis (over the forehead and left side of the face) Head: Normacephalic Eye(s): bilateral: Normal Inspection Ear(s): Bilateral: Normal Nose: Normal, No Septal Hematoma Oral Mucosa: Moist Tongue: Normal Appearing Neck: Trachea Midline, Supple Chest: Symmetrical, No Tenderness Cardiovascular: Rhythm Regular, No Murmur Respiratory: No Rales, No Rhonchi, No Wheezing Gastrointestinal/Abdominal: Soft, No Tenderness, No Guarding, No Rebound Back: Normal Inspection Extremity: Normal ROM Extremity: Bilateral: Atraumatic, Normal Color And Temperature, Normal ROM Pulses: Left Dorsalis Pedis: Normal, Right Dorsalis Pedis: Normal Neurological/Psych: Oriented x3, Normal Speech, Normal Cognition Gait: Steady ED Course And Treatment - Laboratory Results Result Diagrams: 09/18/17 20:40 09/18/17 20:40 ECG: Interpreted By Me, Viewed By Me ECG Rhythm: Sinus Rhythm (54), 1st Degree HB, Nonspecific Changes O2 Sat by Pulse Oximetry: 98 (RA) Pulse Ox Interpretation: Normal - Radiology CXR: Interpreted by Me, Viewed By Me - CT Scan/US CT Orbits/Facials Other Rad Studies (CT/US): Read By Radiologist, Radiology Report Reviewed CT/US Interpretation: IMPRESSION: Anterior scalp hematoma. CT Head Other Rad Studies (CT/US): Read By Radiologist, Radiology Report Reviewed CT/US Interpretation: IMPRESSION: 1. Small vessel ischemic/degenerative changes. 2. Anterior scalp hematoma. Progress Note: Plan: CT Head w/o Contrast. CT Orbits/Facials w/o Contrast. CMP. Troponin. CBC. PTT. Prothrombin Time. CXR One View. Urinalysis Disposition Discussed With DrJuan Pablo: Sharee Rutledge Comment: accepted the pt on his service and took over the care at 9:47 PM Doctor Will See Patient In The: ED Counseled Patient/Family Regarding: Studies Performed, Diagnosis - Disposition Disposition: HOSPITALIZED Disposition Time: 20:55 Condition: FAIR Forms: [facility] (Azerbaijani) - POA Present On Arrival: Falls Or Trauma, Poor Glycemic Control - Clinical Impression Clinical Impression: Syncope, Head contusion, Renal insufficiency - Scribe Statement The provider has reviewed the documentation as recorded by the Scribe (Hussain Lorenzo) Provider Attestation: All medical record entries made by the Scribe were at my direction and personally dictated by me. I have reviewed the chart and agree that the record accurately reflects my personal performance of the history, physical exam, medical decision making, and the department course for this patient. I have also personally directed, reviewed, and agree with the discharge instructions and disposition. Decision To Admit - Pt Status Changed To: Hospital Disposition Of: Inpatient - Admit Certification Admit to Inpatient:: After my assessment, the patient will require hospitalization for at least two midnights. This is because of the severity of symptoms shown, intensity of services needed, and/or the medical risk in this patient being treated as an outpatient. - InPatient: Physician Admission Certification: I certify that this patient requires 2 or more midnights of care for the following reason:: After my assessment, the patient will require hospitalization for at least two midnights. This is because of the severity of symptoms shown, intensity of services needed, and/or the medical risk in this patient being treated as an outpatient. - . Bed Request Type: Telemetry Admitting Physician: Sharee Rutledge Patient Diagnosis: Syncope, Head contusion, Renal insufficiency
[2017-09-18 20:43] LABS: BASO % 0.6 % (0.0-2.0); EOS # 0.1 K/uL (0.0-0.7); EOS % 2.2 % (0.0-4.0); HEMOGLOBIN 11.5 g/dL (11.0-16.0); LYMPH # 1.5 K/uL (1.0-4.3); LYMPH % 25.5 % (20.0-40.0); MEAN CELL VOLUME 97.3 fL (81.0-99.0); MEAN CORPUSCULAR HEMOGLOBIN 33.7 pg (27.0-31.0); MEAN CORPUSCULAR HGB CONC 34.7 g/dL (33.0-37.0); MEAN PLATELET VOLUME 7.5 fL (7.2-11.7); MONO # 0.7 K/uL (0.0-0.8); MONO % 11.4 % (0.0-10.0); NEUT # 3.4 K/uL (1.8-7.0); NEUT % 60.3 % (50.0-75.0); NRBC % 0.2 % (0.0-2.0); RBC 3.39 Mil/uL (3.80-5.20); RED CELL DISTRIBUTION WIDTH 14.1 % (11.5-14.5); WHITE BLOOD COUNT 5.7 K/uL (4.8-10.8)
[2017-09-18 20:55] LABS: ALB/GLOB RATIO 1.3 (1.0-2.1); ALBUMIN 4.1 g/dL (3.5-5.0); ALT/SGPT 22 U/L (9-52); AST/SGOT 30 U/L (14-36); BLOOD UREA NITROGEN 27 mg/dL (7-17); CALCIUM 9.3 mg/dl (8.6-10.4); GFR NON-AFRICAN AMERICAN 35
[2017-09-18 22:29] LABS: PROTHROMBIN TIME 54.6 SECONDS (9.7-12.2)
[2017-09-19] MEDS: Levothyroxine 75 MCG TAB PO SCH (05:45)
[2017-09-19 06:33] LABS: HEMOGLOBIN 11.9 g/dL (11.0-16.0); MEAN CELL VOLUME 98.3 fL (81.0-99.0); MEAN CORPUSCULAR HGB CONC 34.6 g/dL (33.0-37.0); MEAN PLATELET VOLUME 8.3 fL (7.2-11.7); RBC 3.5 Mil/uL (3.80-5.20); RED CELL DISTRIBUTION WIDTH 14.3 % (11.5-14.5); WHITE BLOOD COUNT 6.4 K/uL (4.8-10.8)
[2017-09-19 06:36] LABS: INR 4.9
[2017-09-19 06:40] LABS: PROTHROMBIN TIME 53.7 SECONDS (9.7-12.2)
[2017-09-19 06:47] LABS: CALCIUM 9.3 mg/dl (8.6-10.4)
[2017-09-19 07:21] LABS: SQUAMOUS EPITHIAL < 1 /hpf (0-5); URINE BILIRUBIN NEGATIVE (NEGATIVE); URINE CLARITY Clear (Clear); URINE COLOR Straw (YELLOW); URINE GLUCOSE (UA) NORMAL (Normal); URINE LEUKOCYTE ESTERASE NEG Leu/uL (Negative); URINE PROTEIN NEGATIVE (NEGATIVE); URINE UROBILINOGEN NORMAL mg/dL (0.2-1.0)
[2017-09-19 07:31] LABS: URINE BLOOD TRACE (NEGATIVE)
--- NOTE | 2017-09-19 08:24 | CP.PCM.HP ---
History of Present Illness - History of Present Illness History of Present Illness: Chief complaint: Fall HPI: 89-year-old female came to the emergency room on 09/18/2017 after she was experiencing dizziness, and had a fall. While she was sitting in the commode, she felt like she was sleeping and she fell on the floor and had injury to the left forehead and also left facial area. Patient did not have any recollection. In the emergency room she had a bruising of the left forehead. She did not have any other active systemic symptoms of fever chills nausea vomiting or other headache. She did not remember the fall. She was having no chest pain. No palpitation Past medical history: Hypertension Hypercholesterolemia Intermittent atrial fibrillation Hypothyroidism Allergy Lipitor Family history: Parents of natural cause. Siblings 2 of them alive right now Patient is a non-smoker nonalcoholic. Current medications: Metoprolol, amlodipine, tramadol, pantoprazole, losartan, levothyroxine, chlorthalidone, amiodarone, Coumadin. Review of system: Patient is having minimal pain over the left forehead region also complaining of swelling in the left face. Minimal headache. Syncope noted. Palpitation negative. Feeling dizzy Weakness noted. Epigastric pain On examination: Vital signs stable. But mild bradycardia noted the sinus Chest good air entry regular heart sounds nontender abdomen. Patient has a significant ecchymotic changes in the left foot. Patient labs reviewed Nonspecific labs. 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 EKG mild sinus bradycardia noted Assessment and recommendation: Patient is 89-year-old female with a history of hypertension atrial fibrillation hypothyroidism Silva's esophagus. Osteoporosis. Osteoarthritis. Admitted now with the fall. Patient also had a syncopal episode. Patient needs to be evaluated, monitored closely. We will continue the current treatment. We will follow the patient Present on Admission - Present on Admission Any Indicators Present on Admission: No History of DVT/PE: No History of Uncontrolled Diabetes: No Urinary Catheter: No Decubitus Ulcer Present: No Past Patient History - Past Medical History & Family History Past Medical History?: Yes - Past Social History Smoking Status: Never Smoked - CARDIAC Hx Hypertension: Yes - PULMONARY Hx Respiratory Disorders: No - NEUROLOGICAL Hx Neurological Disorder: No - HEENT Hx HEENT Problems: No - RENAL Hx Chronic Kidney Disease: No - ENDOCRINE/METABOLIC Hx Hypothyroidism: Yes - HEMATOLOGICAL/ONCOLOGICAL Hx Blood Disorders: No - INTEGUMENTARY Hx Dermatological Problems: No - MUSCULOSKELETAL/RHEUMATOLOGICAL Hx Arthritis: Yes Hx Falls: Yes - GASTROINTESTINAL Hx Gastritis: Yes - GENITOURINARY/GYNECOLOGICAL Hx Genitourinary Disorders: No - PSYCHIATRIC Hx Substance Use: No - SURGICAL HISTORY Hx Cholecystectomy: Yes - ANESTHESIA Hx Anesthesia: Yes Hx Anesthesia Reactions: No Hx Malignant Hyperthermia: No Meds Home Medications: Home Medication List Medication Instructions Recorded Confirmed Type Acetaminophen [Tylenol 325mg tab] 650 mg PO Q6 PRN 3 Days tab 09/21/17 Rx Chlorthalidone [Hygroton] 12.5 mg PO DAILY 30 Days tab 09/21/17 Rx Losartan [Cozaar] 100 mg PO DAILY 30 Days tab 09/21/17 Rx Pantoprazole [Protonix] 40 mg PO DAILY 30 Days ect 09/21/17 Rx amLODIPine [Norvasc] 10 mg PO DAILY 30 Days tab 09/21/17 Rx Allergies/Adverse Reactions: Allergies Allergy/AdvReac Type Severity Reaction Status Date / Time No Known Allergies Allergy Verified 09/18/17 19:55 Results - Vital Signs Recent Vital Signs: Last Vital Signs Temp 97.3 F L 09/19/17 07:47 Pulse 44 L 09/19/17 07:47 Resp 18 09/19/17 07:47 BP 132/70 09/19/17 07:47 Pulse Ox 96 09/19/17 07:47 - Labs Result Diagrams: 09/21/17 13:53 09/21/17 10:55 Labs: Laboratory Results - last 24 hr 09/18/17 09/18/17 09/18/17 20:40 20:40 21:56 WBC 5.7 RBC 3.39 L Hgb 11.5 Hct 33.0 L MCV 97.3 D MCH 33.7 H MCHC 34.7 RDW 14.1 Plt Count 196 MPV 7.5 Neut % (Auto) 60.3 Lymph % (Auto) 25.5 [place] % (Auto) 11.4 H Eos % (Auto) 2.2 Baso % (Auto) 0.6 Neut # (Auto) 3.4 Lymph # (Auto) 1.5 [place] # (Auto) 0.7 Eos # (Auto) 0.1 Baso # (Auto) 0.0 PT 54.6 H* INR 5.0 APTT 52 H Sodium 135 Potassium 4.9 Chloride 100 Carbon Dioxide 24 Anion Gap 16 BUN 27 H Creatinine 1.4 H Est GFR ( Amer) 43 Est GFR (Non-Af Amer) 35 Random Glucose 133 H Calcium 9.3 Total Bilirubin 0.5 AST 30 ALT 22 Alkaline Phosphatase 53 Troponin I < 0.0120 Total Protein 7.2 Albumin 4.1 Globulin 3.2 Albumin/Globulin Ratio 1.3 Urine Color Urine Clarity Urine pH Ur Specific [place] Urine Protein Urine Glucose (UA) Urine Ketones Urine Blood Urine Nitrate Urine Bilirubin Urine Urobilinogen Ur Leukocyte Esterase Urine WBC (Auto) Urine RBC (Auto) Ur Squamous Epith Cells 09/19/17 09/19/17 09/19/17 06:18 06:18 06:18 WBC 6.4 RBC 3.50 L Hgb 11.9 Hct 34.4 MCV 98.3 MCH 34.0 H MCHC 34.6 RDW 14.3 Plt Count 194 MPV 8.3 Neut % (Auto) Lymph % (Auto) [place] % (Auto) Eos % (Auto) Baso % (Auto) Neut # (Auto) Lymph # (Auto) [place] # (Auto) Eos # (Auto) Baso # (Auto) PT 53.7 H* INR 4.9 APTT 61 H D Sodium 140 Potassium 5.2 Chloride 101 Carbon Dioxide 23 Anion Gap 20 BUN 24 H Creatinine 1.1 Est GFR ( Amer) 57 Est GFR (Non-Af Amer) 47 Random Glucose 94 Calcium 9.3 Total Bilirubin AST ALT Alkaline Phosphatase Troponin I Total Protein Albumin Globulin Albumin/Globulin Ratio Urine Color Urine Clarity Urine pH Ur Specific [place] Urine Protein Urine Glucose (UA) Urine Ketones Urine Blood Urine Nitrate Urine Bilirubin Urine Urobilinogen Ur Leukocyte Esterase Urine WBC (Auto) Urine RBC (Auto) Ur Squamous Epith Cells 09/19/17 06:40 WBC RBC Hgb Hct MCV MCH MCHC RDW Plt Count MPV Neut % (Auto) Lymph % (Auto) [place] % (Auto) Eos % (Auto) Baso % (Auto) Neut # (Auto) Lymph # (Auto) [place] # (Auto) Eos # (Auto) Baso # (Auto) PT INR APTT Sodium Potassium Chloride Carbon Dioxide Anion Gap BUN Creatinine Est GFR ( Amer) Est GFR (Non-Af Amer) Random Glucose Calcium Total Bilirubin AST ALT Alkaline Phosphatase Troponin I Total Protein Albumin Globulin Albumin/Globulin Ratio Urine Color Straw Urine Clarity Clear Urine pH 7.0 Ur Specific [place] 1.005 Urine Protein Negative Urine Glucose (UA) Normal Urine Ketones Negative Urine Blood Trace H Urine Nitrate Negative Urine Bilirubin Negative Urine Urobilinogen Normal Ur Leukocyte Esterase Neg Urine WBC (Auto) < 1 Urine RBC (Auto) 3 Ur Squamous Epith Cells < 1
[2017-09-19] MEDS: Pantoprazole 40 mg EC Tab PO SCH (09:18)
[2017-09-19] MEDS ORDERED: Home Med 1 UNIT (Potassium Chloride [Potassium Chloride] 10 MEQ) PO SCH (10:00)
[2017-09-19] MEDS ORDERED: Metoprolol Succinate 50 mg XL Tab PO SCH ×2 (10:00)
--- NOTE | 2017-09-19 11:22 | CP.PCM.CON ---
History of Present Illness - History of Present Illness History of Present Illness: COVERING DR [address] 89 year old female knows to Dr Lane who reports she is scheduled for an out patient EGD on Thursday due to Epigastric pain refractory to therapy. She had an EGD done in 2014 showing gastritis and Silva's esophagus by biopsy. She is admitted following a syncopal episode at home with facial trauma above he nose and orbital area. CT shows no fracture of bleed. She denies N/V. She does not recall the event. Telemetry shows bradycardia with heart rate 45-55. No CP, SOB. No melena or bleeding. Review of Systems - Cardiovascular Cardiovascular: absent: Chest Pain, Chest Pain at Rest, Dyspnea, Dyspnea on Exertion - Gastrointestinal Gastrointestinal: As Per HPI, Abdominal Pain, Heartburn. absent: Change in Bowel Habits, Hematochezia Past Patient History - Past Medical History & Family History Past Medical History?: Yes - Past Social History Smoking Status: Never Smoked Alcohol: None Drugs: Denies - CARDIAC Hx Hypertension: Yes - PULMONARY Hx Respiratory Disorders: No - NEUROLOGICAL Hx Neurological Disorder: No - HEENT Hx HEENT Problems: No - RENAL Hx Chronic Kidney Disease: No - ENDOCRINE/METABOLIC Hx Hypothyroidism: Yes - HEMATOLOGICAL/ONCOLOGICAL Hx Blood Disorders: No Hx Cirrhosis: No Hx Hepatitis A: No Hx Hepatitis B: No Hx Hepatitis C: No Hx Human Immunodeficiency Virus (HIV): No - INTEGUMENTARY Hx Dermatological Problems: No - MUSCULOSKELETAL/RHEUMATOLOGICAL Hx Arthritis: Yes Hx Falls: Yes - GASTROINTESTINAL Hx Gastrointestinal Disorders: Yes Hx Bowel Surgery: No Hx Clostridium Difficile: No Hx Colitis: No Hx Colostomy: No Hx Constipation: No Hx Crohn's Disease: No Hx Diarrhea: No Hx Diverticulitis: No Hx Esophageal Varices: No Hx Fatty Liver Disease: No Hx Gall Bladder Disease: No Hx Gastritis: Yes Hx Gastroesophageal Reflux: Yes Hx Hemorrhoids: No Hx Ileostomy: No Hx Irritable Bowel: No Hx Liver Failure: No Hx Nausea: No Hx Pancreatitis: No HX Swallowing Problems: No Hx Ulcer: No Hx Vomiting: No - GENITOURINARY/GYNECOLOGICAL Hx Genitourinary Disorders: No - PSYCHIATRIC Hx Substance Use: No - SURGICAL HISTORY Hx Cholecystectomy: Yes - ANESTHESIA Hx Anesthesia: Yes Hx Anesthesia Reactions: No Hx Malignant Hyperthermia: No Meds Allergies/Adverse Reactions: Allergies Allergy/AdvReac Type Severity Reaction Status Date / Time No Known Allergies Allergy Verified 09/18/17 19:55 - Medications Medications: Current Medications Acetaminophen (Tylenol 325mg Tab) 650 mg PO Q6 PRN PRN Reason: Pain, Mild (1-3) Chlorthalidone (Hygroton) 25 mg PO DAILY [facility] Last Admin: 09/19/17 09:18 Dose: 25 mg Levothyroxine Sodium (Synthroid) 75 mcg PO DAILY@0630 [facility] Last Admin: 09/19/17 05:45 Dose: 75 mcg Losartan Potassium (Cozaar) 50 mg PO DAILY [facility] Last Admin: 09/19/17 09:18 Dose: 50 mg Metoprolol Succinate (Toprol Xl) 50 mg PO DAILY [facility] Last Admin: 09/19/17 09:18 Dose: Not Given Pantoprazole Sodium (Protonix Ec Tab) 40 mg PO DAILY [facility] Last Admin: 09/19/17 09:18 Dose: 40 mg Physical Exam - Constitutional Appears: No Acute Distress - Head Exam Additional comments: ecchymosis across bridge of nose and bilat orbital area. - Eye Exam Eye Exam: EOMI, Periorbital swelling, Periorbital tenderness, PERRL - Respiratory Exam Respiratory Exam: NORMAL BREATHING PATTERN - Cardiovascular Exam Cardiovascular Exam: Bradycardia, +S1 - GI/Abdominal Exam GI & Abdominal Exam: Normal Bowel Sounds, Soft. absent: Distended, Guarding, Mass, Rebound, Tenderness - Rectal Exam Rectal Exam: Deferred - Extremities Exam Extremities exam: Positive for: normal inspection - Neurological Exam Neurological exam: Alert, Oriented x3 - Psychiatric Exam Psychiatric exam: Normal Affect, Normal Mood - Skin Skin Exam: Dry, Warm Results - Vital Signs Recent Vital Signs: Last Vital Signs Temp 97.3 F L 09/19/17 07:47 Pulse 44 L 09/19/17 07:47 Resp 18 09/19/17 07:47 BP 132/70 09/19/17 07:47 Pulse Ox 96 09/19/17 07:47 - Labs Result Diagrams: 09/19/17 06:18 09/19/17 06:18 Labs: Laboratory Results - last 24 hr 09/18/17 09/18/17 09/18/17 20:40 20:40 21:56 WBC 5.7 RBC 3.39 L Hgb 11.5 Hct 33.0 L MCV 97.3 D MCH 33.7 H MCHC 34.7 RDW 14.1 Plt Count 196 MPV 7.5 Neut % (Auto) 60.3 Lymph % (Auto) 25.5 [place] % (Auto) 11.4 H Eos % (Auto) 2.2 Baso % (Auto) 0.6 Neut # (Auto) 3.4 Lymph # (Auto) 1.5 [place] # (Auto) 0.7 Eos # (Auto) 0.1 Baso # (Auto) 0.0 PT 54.6 H* INR 5.0 APTT 52 H Sodium 135 Potassium 4.9 Chloride 100 Carbon Dioxide 24 Anion Gap 16 BUN 27 H Creatinine 1.4 H Est GFR ( Amer) 43 Est GFR (Non-Af Amer) 35 Random Glucose 133 H Calcium 9.3 Total Bilirubin 0.5 AST 30 ALT 22 Alkaline Phosphatase 53 Troponin I < 0.0120 Total Protein 7.2 Albumin 4.1 Globulin 3.2 Albumin/Globulin Ratio 1.3 Urine Color Urine Clarity Urine pH Ur Specific [place] Urine Protein Urine Glucose (UA) Urine Ketones Urine Blood Urine Nitrate Urine Bilirubin Urine Urobilinogen Ur Leukocyte Esterase Urine WBC (Auto) Urine RBC (Auto) Ur Squamous Epith Cells 09/19/17 09/19/17 09/19/17 06:18 06:18 06:18 WBC 6.4 RBC 3.50 L Hgb 11.9 Hct 34.4 MCV 98.3 MCH 34.0 H MCHC 34.6 RDW 14.3 Plt Count 194 MPV 8.3 Neut % (Auto) Lymph % (Auto) [place] % (Auto) Eos % (Auto) Baso % (Auto) Neut # (Auto) Lymph # (Auto) [place] # (Auto) Eos # (Auto) Baso # (Auto) PT 53.7 H* INR 4.9 APTT 61 H D Sodium 140 Potassium 5.2 Chloride 101 Carbon Dioxide 23 Anion Gap 20 BUN 24 H Creatinine 1.1 Est GFR ( Amer) 57 Est GFR (Non-Af Amer) 47 Random Glucose 94 Calcium 9.3 Total Bilirubin AST ALT Alkaline Phosphatase Troponin I Total Protein Albumin Globulin Albumin/Globulin Ratio Urine Color Urine Clarity Urine pH Ur Specific [place] Urine Protein Urine Glucose (UA) Urine Ketones Urine Blood Urine Nitrate Urine Bilirubin Urine Urobilinogen Ur Leukocyte Esterase Urine WBC (Auto) Urine RBC (Auto) Ur Squamous Epith Cells 09/19/17 06:40 WBC RBC Hgb Hct MCV MCH MCHC RDW Plt Count MPV Neut % (Auto) Lymph % (Auto) [place] % (Auto) Eos % (Auto) Baso % (Auto) Neut # (Auto) Lymph # (Auto) [place] # (Auto) Eos # (Auto) Baso # (Auto) PT INR APTT Sodium Potassium Chloride Carbon Dioxide Anion Gap BUN Creatinine Est GFR ( Amer) Est GFR (Non-Af Amer) Random Glucose Calcium Total Bilirubin AST ALT Alkaline Phosphatase Troponin I Total Protein Albumin Globulin Albumin/Globulin Ratio Urine Color Straw Urine Clarity Clear Urine pH 7.0 Ur Specific [place] 1.005 Urine Protein Negative Urine Glucose (UA) Normal Urine Ketones Negative Urine Blood Trace H Urine Nitrate Negative Urine Bilirubin Negative Urine Urobilinogen Normal Ur Leukocyte Esterase Neg Urine WBC (Auto) < 1 Urine RBC (Auto) 3 Ur Squamous Epith Cells < 1 Assessment & Plan (1) Epigastric pain Assessment and Plan: Pain has been persistent and she was scheduled for EGD to evaluate next week. r/ o PUD, gastritis, progression of Barretts to dysplasia, r/o anginal equivalent. Continue Protonix Plan for EGD when she has been cleared by Cardiology. Status: Acute Priority: High (2) Silva's esophagus determined by biopsy Status: Chronic Priority: Low (3) Syncope Assessment and Plan: Syncope likely to bradyarrhthmia. May need pacemaker. Cardiology evaluation. Status: Acute Priority: High (4) Bradycardia Assessment and Plan: as above Status: Acute
--- NOTE | 2017-09-19 13:58 | CT ---
Date of service: 09/18/2017 PROCEDURE: CT HEAD WITHOUT CONTRAST. HISTORY: syncope COMPARISON: None available. TECHNIQUE: Axial computed tomography images were obtained through the head/brain without intravenous contrast. Radiation dose: Total exam DLP = 708.25 mGy-cm. This CT exam was performed using one or more of the following dose reduction techniques: Automated exposure control, adjustment of the mA and/or kV according to patient size, and/or use of iterative reconstruction technique. FINDINGS: HEMORRHAGE: No intracranial hemorrhage. BRAIN: No mass effect or edema. Right basal ganglia focal subcentimeter hypodensity may represent chronic lacunar infarct or dilated perivascular space. No atrophy or chronic microvascular ischemic changes. VENTRICLES: Unremarkable. No hydrocephalus. CALVARIUM: Unremarkable. PARANASAL SINUSES: Unremarkable as visualized. No significant inflammatory changes. MASTOID AIR CELLS: Unremarkable as visualized. No inflammatory changes. OTHER FINDINGS: None. IMPRESSION: No evidence of acute intracranial hemorrhage mass effect or midline shift. Frontal scalp small hematoma Preliminary report was submitted by virtual Radiology.
--- NOTE | 2017-09-19 16:29 | CT ---
Date of service: 09/18/2017 PROCEDURE: CT MAXILLOFACIAL BONES -ORBITS WITHOUT HISTORY: Status post fall COMPARISON: Correlation made with concurrent CT scan brain TECHNIQUE: Contiguous axial CT images of the maxillofacial bones were obtained following without contrast. Coronal and sagittal reformats were generated. This CT exam was performed using one or more of the following dose reduction techniques: Automated exposure control, adjustment of the mA and/or kV according to patient size, and/or use of iterative reconstruction technique. Radiation dose: Total exam DLP = 735.09 mGy-cm. FINDINGS: NASAL BONES: Unremarkable. ORBITS: Changes of bilateral cataract surgery. PARANASAL SINUSES/ MASTOIDS: Minor mucosal thickening seen within few ethmoid air cells MAXILLA: Maxilla appears intact. Patient is edentulous with in situ dentures MANDIBLE/ TEMPOROMANDIBULAR JOINTS: Unremarkable. SKULL BASE: Unremarkable. TEMPORAL BONES: Middle ears and mastoid grossly unremarkable. OTHER FINDINGS: There is mild left mid and left frontal soft tissue swelling/scalp contusion Mild vascular calcifications both carotid siphons. IMPRESSION: No evidence of acute maxillofacial skeletal fracture. Mild mid and left parasagittal frontal scalp contusion.
[2017-09-19 17:17] LABS: SQUAMOUS EPITHIAL < 1 /hpf (0-5); URINE BILIRUBIN NEGATIVE (NEGATIVE); URINE BLOOD 1+ (NEGATIVE); URINE CLARITY Clear (Clear); URINE COLOR Straw (YELLOW); URINE GLUCOSE (UA) NORMAL (Normal); URINE LEUKOCYTE ESTERASE NEG Leu/uL (Negative); URINE PROTEIN NEGATIVE (NEGATIVE); URINE UROBILINOGEN NORMAL mg/dL (0.2-1.0)
--- NOTE | 2017-09-19 18:59 | CP.PCM.CON ---
History of Present Illness - History of Present Illness History of Present Illness: The pt is an 89 year old female with HTN, episodic atrial fibrillation. She has done well oh er regimen of amiodarone, losartan, chlorthalidone 25 and metoprolol 50 xl. lately she ahs been tired. 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 was supposed to have an egd with Dr Baker. two days ago, pt had lunch, felt tired, though about going to the bathroom, went and urinated, and abruptly passed out on the toile, waking up ten miutes later. She had facial truam, head ct negative. Pt cake to the hospital the following night. ECG showed sinus bradycardia, and beta thalia held. BP was high this afternoon. Mildly prerenal on labs. INR is elevated. She has not had a recent INR. HTere have been no recent afib recurrences. Review of Systems - Review of Systems Review of Systems: as above. Past Patient History - Past Medical History & Family History Past Medical History?: Yes - Past Social History Smoking Status: Never Smoked Alcohol: None Drugs: Denies - CARDIAC Hx Hypertension: Yes - PULMONARY Hx Respiratory Disorders: No - NEUROLOGICAL Hx Neurological Disorder: No - HEENT Hx HEENT Problems: No - RENAL Hx Chronic Kidney Disease: No - ENDOCRINE/METABOLIC Hx Hypothyroidism: Yes - HEMATOLOGICAL/ONCOLOGICAL Hx Blood Disorders: No Hx Cirrhosis: No Hx Hepatitis A: No Hx Hepatitis B: No Hx Hepatitis C: No Hx Human Immunodeficiency Virus (HIV): No - INTEGUMENTARY Hx Dermatological Problems: No - MUSCULOSKELETAL/RHEUMATOLOGICAL Hx Arthritis: Yes Hx Falls: Yes - GASTROINTESTINAL Hx Gastrointestinal Disorders: Yes Hx Bowel Surgery: No Hx Clostridium Difficile: No Hx Colitis: No Hx Colostomy: No Hx Constipation: No Hx Crohn's Disease: No Hx Diarrhea: No Hx Diverticulitis: No Hx Esophageal Varices: No Hx Fatty Liver Disease: No Hx Gall Bladder Disease: No Hx Gastritis: Yes Hx Gastroesophageal Reflux: Yes Hx Hemorrhoids: No Hx Ileostomy: No Hx Irritable Bowel: No Hx Liver Failure: No Hx Nausea: No Hx Pancreatitis: No HX Swallowing Problems: No Hx Ulcer: No Hx Vomiting: No - GENITOURINARY/GYNECOLOGICAL Hx Genitourinary Disorders: No - PSYCHIATRIC Hx Substance Use: No - SURGICAL HISTORY Hx Cholecystectomy: Yes - ANESTHESIA Hx Anesthesia: Yes Hx Anesthesia Reactions: No Hx Malignant Hyperthermia: No Meds Allergies/Adverse Reactions: Allergies Allergy/AdvReac Type Severity Reaction Status Date / Time No Known Allergies Allergy Verified 09/18/17 19:55 - Medications Medications: Current Medications Acetaminophen (Tylenol 325mg Tab) 650 mg PO Q6 PRN PRN Reason: Pain, Mild (1-3) Amlodipine Besylate (Norvasc) 5 mg PO STAT STA Stop: 09/19/17 18:46 Chlorthalidone (Hygroton) 12.5 mg PO DAILY [facility] Levothyroxine Sodium (Synthroid) 75 mcg PO DAILY@0630 [facility] Last Admin: 09/19/17 05:45 Dose: 75 mcg Losartan Potassium (Cozaar) 100 mg PO DAILY [facility] Pantoprazole Sodium (Protonix Ec Tab) 40 mg PO DAILY [facility] Last Admin: 09/19/17 09:18 Dose: 40 mg Physical Exam - Constitutional Appears: Cachectic - Head Exam Additional comments: facial ecchymosis - Eye Exam Eye Exam: EOMI - ENT Exam ENT Exam: Mucous Membranes Moist - Neck Exam Neck exam: Positive for: Normal Inspection - Respiratory Exam Respiratory Exam: Clear to Auscultation Bilateral - Cardiovascular Exam Cardiovascular Exam: REGULAR RHYTHM - GI/Abdominal Exam GI & Abdominal Exam: Normal Bowel Sounds - Exam External exam: NORMAL EXTERNAL EXAM - Extremities Exam Extremities exam: Positive for: normal inspection - Back Exam Back exam: NORMAL INSPECTION - Neurological Exam Neurological exam: Alert, Normal Gait, Oriented x3, Reflexes Normal - Psychiatric Exam Psychiatric exam: Normal Affect - Skin Skin Exam: Normal Color Results - Vital Signs Recent Vital Signs: Last Vital Signs Temp 97.6 F 09/19/17 15:00 Pulse 50 L 09/19/17 15:00 Resp 20 09/19/17 15:00 BP 176/63 H 09/19/17 15:00 Pulse Ox 97 09/19/17 15:00 - Labs Result Diagrams: 09/19/17 06:18 09/19/17 06:18 Labs: Laboratory Results - last 24 hr 09/18/17 09/18/17 09/18/17 20:40 20:40 21:56 WBC 5.7 RBC 3.39 L Hgb 11.5 Hct 33.0 L MCV 97.3 D MCH 33.7 H MCHC 34.7 RDW 14.1 Plt Count 196 MPV 7.5 Neut % (Auto) 60.3 Lymph % (Auto) 25.5 [place] % (Auto) 11.4 H Eos % (Auto) 2.2 Baso % (Auto) 0.6 Neut # (Auto) 3.4 Lymph # (Auto) 1.5 [place] # (Auto) 0.7 Eos # (Auto) 0.1 Baso # (Auto) 0.0 PT 54.6 H* INR 5.0 APTT 52 H Sodium 135 Potassium 4.9 Chloride 100 Carbon Dioxide 24 Anion Gap 16 BUN 27 H Creatinine 1.4 H Est GFR ( Amer) 43 Est GFR (Non-Af Amer) 35 Random Glucose 133 H Calcium 9.3 Total Bilirubin 0.5 AST 30 ALT 22 Alkaline Phosphatase 53 Troponin I < 0.0120 Total Protein 7.2 Albumin 4.1 Globulin 3.2 Albumin/Globulin Ratio 1.3 Urine Color Urine Clarity Urine pH Ur Specific [place] Urine Protein Urine Glucose (UA) Urine Ketones Urine Blood Urine Nitrate Urine Bilirubin Urine Urobilinogen Ur Leukocyte Esterase Urine WBC (Auto) Urine RBC (Auto) Ur Squamous Epith Cells 09/19/17 09/19/17 09/19/17 06:18 06:18 06:18 WBC 6.4 RBC 3.50 L Hgb 11.9 Hct 34.4 MCV 98.3 MCH 34.0 H MCHC 34.6 RDW 14.3 Plt Count 194 MPV 8.3 Neut % (Auto) Lymph % (Auto) [place] % (Auto) Eos % (Auto) Baso % (Auto) Neut # (Auto) Lymph # (Auto) [place] # (Auto) Eos # (Auto) Baso # (Auto) PT 53.7 H* INR 4.9 APTT 61 H D Sodium 140 Potassium 5.2 Chloride 101 Carbon Dioxide 23 Anion Gap 20 BUN 24 H Creatinine 1.1 Est GFR ( Amer) 57 Est GFR (Non-Af Amer) 47 Random Glucose 94 Calcium 9.3 Total Bilirubin AST ALT Alkaline Phosphatase Troponin I Total Protein Albumin Globulin Albumin/Globulin Ratio Urine Color Urine Clarity Urine pH Ur Specific [place] Urine Protein Urine Glucose (UA) Urine Ketones Urine Blood Urine Nitrate Urine Bilirubin Urine Urobilinogen Ur Leukocyte Esterase Urine WBC (Auto) Urine RBC (Auto) Ur Squamous Epith Cells 09/19/17 09/19/17 06:40 16:58 WBC RBC Hgb Hct MCV MCH MCHC RDW Plt Count MPV Neut % (Auto) Lymph % (Auto) [place] % (Auto) Eos % (Auto) Baso % (Auto) Neut # (Auto) Lymph # (Auto) [place] # (Auto) Eos # (Auto) Baso # (Auto) PT INR APTT Sodium Potassium Chloride Carbon Dioxide Anion Gap BUN Creatinine Est GFR ( Amer) Est GFR (Non-Af Amer) Random Glucose Calcium Total Bilirubin AST ALT Alkaline Phosphatase Troponin I Total Protein Albumin Globulin Albumin/Globulin Ratio Urine Color Straw Straw Urine Clarity Clear Clear Urine pH 7.0 6.0 Ur Specific [place] 1.005 1.009 Urine Protein Negative Negative Urine Glucose (UA) Normal Normal Urine Ketones Negative Negative Urine Blood Trace H 1+ H Urine Nitrate Negative Negative Urine Bilirubin Negative Negative Urine Urobilinogen Normal Normal Ur Leukocyte Esterase Neg Neg Urine WBC (Auto) < 1 3 Urine RBC (Auto) 3 1 Ur Squamous Epith Cells < 1 < 1 - EKG Data EKG Interpreted by: Myself (sinus bradycardia) Assessment & Plan - Assessment and Plan (Free Text) Assessment: 1. Syncope: by history, the story the patient presents sound vasovagal. Sinus bradycardia could have been a factor. Pt has been on both aniodarone and metoprolol. I agree with holding metoprolol for now. Also hold amiodarone: as amiodarone effect wears off, it is likely that metoprolol can be restarted, for HTN and to reduced afib recurrence. 2. Check tsh 3. Pt is prerenal. will lower diuretic dose 4. Telemetry to assess for arrhythmic: if negative, outpatient event monitor is advised. 5. Follow INR> Will ahve a family discussion regarding risks and benefits of warfarin in pt' kyle have facial truama. 6. BP is high off metoprolol: add norvasc 5 mg a day and increase to 10 mg if needed. 7. Increase losartan to 100 mg po a day.
--- NOTE | 2017-09-19 20:58 | RAD ---
Date of service: 09/18/2017 PROCEDURE: CHEST RADIOGRAPH, 1 VIEW HISTORY: chest pain COMPARISON: Comparison is made with 01/09/2017 FINDINGS: LUNGS: Clear. PLEURA: No pneumothorax or pleural fluid seen. CARDIOVASCULAR: Normal. OSSEOUS STRUCTURES: No significant abnormalities. VISUALIZED UPPER ABDOMEN: Normal. OTHER FINDINGS: None. IMPRESSION: No active disease.
[2017-09-19] MEDS ORDERED: Aluminum Hydroxide/Magnesium Hydroxide Susp (30 mL) PO ONE (23:20)
[2017-09-20] MEDS: Levothyroxine 75 MCG TAB PO SCH (05:50)
[2017-09-20] MEDS: Pantoprazole 40 mg EC Tab PO SCH (09:26)
--- NOTE | 2017-09-20 11:54 | CP.PCM.PN ---
Subjective - Date & Time of Evaluation Date of Evaluation: 09/20/17 Time of Evaluation: 11:51 - Subjective Subjective: COVERING DR LANE Cardio evaluation noted. Awaiting clearance for EGD as pain persists. Objective - Vital Signs/Intake and Output Vital Signs (last 24 hours): Temp Pulse Resp BP Pulse Ox 97.4 F L 82 20 167/68 H 98 09/20/17 08:00 09/20/17 08:00 09/20/17 08:00 09/20/17 08:00 09/20/17 08:00 Intake and Output: 09/20/17 09/20/17 06:59 18:59 Intake Total 60 Balance 60 - Medications Medications: Current Medications Acetaminophen (Tylenol 325mg Tab) 650 mg PO Q6 PRN PRN Reason: Pain, Mild (1-3) Last Admin: 09/20/17 03:45 Dose: 650 mg Amlodipine Besylate (Norvasc) 10 mg PO DAILY [facility] Chlorthalidone (Hygroton) 12.5 mg PO DAILY [facility] Last Admin: 09/20/17 09:43 Dose: 12.5 mg Levothyroxine Sodium (Synthroid) 75 mcg PO DAILY@0630 [facility] Last Admin: 09/20/17 05:50 Dose: 75 mcg Losartan Potassium (Cozaar) 100 mg PO DAILY [facility] Last Admin: 09/20/17 09:27 Dose: 100 mg Pantoprazole Sodium (Protonix Ec Tab) 40 mg PO DAILY [facility] Last Admin: 09/20/17 09:26 Dose: 40 mg - Labs Labs: 09/19/17 06:18 09/19/17 06:18 PT 53.7 SECONDS (9.7-12.2) H* 09/19/17 06:18 INR 4.9 09/19/17 06:18 APTT 61 SECONDS (21-34) H D 09/19/17 06:18 - Constitutional Appears: No Acute Distress - Head Exam Additional comments: Eccymoses unchanged - Respiratory Exam Respiratory Exam: NORMAL BREATHING PATTERN - Cardiovascular Exam Cardiovascular Exam: Bradycardia, +S1 - GI/Abdominal Exam GI & Abdominal Exam: Soft, Normal Bowel Sounds. absent: Tenderness - Extremities Exam Extremities Exam: Normal Inspection Assessment and Plan (1) Epigastric pain Assessment & Plan: Pain persists especially after meals. On Protonix. Awaiting Cardiology to clear for EGD in am or will be rescheduled as outpatient. Dr Cruz paged to discuss. 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 (Beyond routine surveillance age) Status: Chronic (3) Syncope Assessment & Plan: [place] to be vasovagal by Cardiology though she is bradycardic at baseline. Awaiting follow up. Status: Acute (4) Bradycardia Assessment & Plan: as above Status: Acute
[2017-09-21] MEDS ORDERED: Aluminum Hydroxide/Magnesium Hydroxide Susp (30 mL) PO ONE (00:10)
[2017-09-21] MEDS: Levothyroxine 75 MCG TAB PO SCH (05:37)
[2017-09-21 08:37] LABS: INR 2.9; PROTHROMBIN TIME 31.9 SECONDS (9.7-12.2)
--- NOTE | 2017-09-21 08:47 | CP.PCM.PN ---
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 Patient is feeling better. No chest pain or shortness of breath noted. Ecchymosis periorbital left face noted Clinical examination is unremarkable except sinus bradycardia. Patient is off amiodarone, metoprolol to be monitored and will continue. Closely monitor the rhythm strip. Physical therapy. Assessment: 89-year-old female History of intermittent atrial fibrillation, hypertension, hypercholesterolemia , pedal edema congestive heart failure, chronic lower back pain Patient admitted with acute syncopal episode, and a fall facial injury. Off Coumadin will monitor Possible discharge plan tomorrow Objective - Vital Signs/Intake and Output Vital Signs (last 24 hours): Temp Pulse Resp BP Pulse Ox 97.8 F 74 18 158/65 H 98 09/21/17 07:48 09/21/17 07:48 09/21/17 07:48 09/21/17 07:48 09/21/17 07:48 Intake and Output: 09/21/17 09/21/17 06:59 18:59 Intake Total 800 Balance 800 - Medications Medications: Current Medications Acetaminophen (Tylenol 325mg Tab) 650 mg PO Q6 PRN PRN Reason: Pain, Mild (1-3) Last Admin: 09/20/17 21:12 Dose: 650 mg Amlodipine Besylate (Norvasc) 10 mg PO DAILY [facility] Last Admin: 09/20/17 12:49 Dose: 10 mg Chlorthalidone (Hygroton) 12.5 mg PO DAILY [facility] Last Admin: 09/20/17 09:43 Dose: 12.5 mg Levothyroxine Sodium (Synthroid) 75 mcg PO DAILY@0630 [facility] Last Admin: 09/21/17 05:37 Dose: 75 mcg Losartan Potassium (Cozaar) 100 mg PO DAILY [facility] Last Admin: 09/20/17 09:27 Dose: 100 mg Pantoprazole Sodium (Protonix Ec Tab) 40 mg PO DAILY [facility] Last Admin: 09/20/17 09:26 Dose: 40 mg - Labs Labs: 09/19/17 06:18 09/19/17 06:18 PT 31.9 SECONDS (9.7-12.2) H* D 09/21/17 08:18 INR 2.9 D 09/21/17 08:18 APTT 61 SECONDS (21-34) H D 09/19/17 06:18
--- NOTE | 2017-09-21 08:47 | CP.PCM.PN ---
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 Patient is feeling better. No chest pain or shortness of breath noted. Ecchymosis periorbital left face noted Clinical examination is unremarkable except sinus bradycardia. Patient is off amiodarone, metoprolol to be monitored and will continue. Closely monitor the rhythm strip. Physical therapy. Assessment: 89-year-old female History of intermittent atrial fibrillation, hypertension, hypercholesterolemia , pedal edema congestive heart failure, chronic lower back pain Patient admitted with acute syncopal episode, and a fall facial injury. Off Coumadin will monitor Objective - Vital Signs/Intake and Output Vital Signs (last 24 hours): Temp Pulse Resp BP Pulse Ox 97.8 F 74 18 158/65 H 98 09/21/17 07:48 09/21/17 07:48 09/21/17 07:48 09/21/17 07:48 09/21/17 07:48 Intake and Output: 09/21/17 09/21/17 06:59 18:59 Intake Total 800 Balance 800 - Medications Medications: Current Medications Acetaminophen (Tylenol 325mg Tab) 650 mg PO Q6 PRN PRN Reason: Pain, Mild (1-3) Last Admin: 09/20/17 21:12 Dose: 650 mg Amlodipine Besylate (Norvasc) 10 mg PO DAILY [facility] Last Admin: 09/20/17 12:49 Dose: 10 mg Chlorthalidone (Hygroton) 12.5 mg PO DAILY [facility] Last Admin: 09/20/17 09:43 Dose: 12.5 mg Levothyroxine Sodium (Synthroid) 75 mcg PO DAILY@0630 [facility] Last Admin: 09/21/17 05:37 Dose: 75 mcg Losartan Potassium (Cozaar) 100 mg PO DAILY [facility] Last Admin: 09/20/17 09:27 Dose: 100 mg Pantoprazole Sodium (Protonix Ec Tab) 40 mg PO DAILY [facility] Last Admin: 09/20/17 09:26 Dose: 40 mg - Labs Labs: 09/19/17 06:18 09/19/17 06:18 PT 31.9 SECONDS (9.7-12.2) H* D 09/21/17 08:18 INR 2.9 D 09/21/17 08:18 APTT 61 SECONDS (21-34) H D 09/19/17 06:18
[2017-09-21] MEDS ORDERED: Etomidate 20 mg/10ml Inj IV ONE ×2 (09:43→09:50)
[2017-09-21] MEDS ORDERED: Lactated Ringer's 500 ML IV ONE (09:44)
[2017-09-21 11:35] LABS: ALB/GLOB RATIO 1.3 (1.0-2.1); ALBUMIN 3.9 g/dL (3.5-5.0); CALCIUM 9.4 mg/dl (8.6-10.4)
[2017-09-21] MEDS: Pantoprazole 40 mg EC Tab PO SCH (11:59)
[2017-09-21 14:02] LABS: BASO % 0.6 % (0.0-2.0); EOS # 0.1 K/uL (0.0-0.7); EOS % 1.3 % (0.0-4.0); HEMOGLOBIN 12.5 g/dL (11.0-16.0); LYMPH # 0.9 K/uL (1.0-4.3); LYMPH % 15.2 % (20.0-40.0); MEAN CELL VOLUME 98.4 fL (81.0-99.0); MEAN CORPUSCULAR HEMOGLOBIN 33.6 pg (27.0-31.0); MEAN CORPUSCULAR HGB CONC 34.2 g/dL (33.0-37.0); MEAN PLATELET VOLUME 8.1 fL (7.2-11.7); MONO # 0.4 K/uL (0.0-0.8); NEUT # 4.3 K/uL (1.8-7.0); NEUT % 75.9 % (50.0-75.0); RBC 3.71 Mil/uL (3.80-5.20); RED CELL DISTRIBUTION WIDTH 14.2 % (11.5-14.5); WHITE BLOOD COUNT 5.6 K/uL (4.8-10.8)
[2017-09-21 16:26] VITALS: BP 123/68; RESP 20; TEMP 97.9; O2SAT 97
[2017-09-21 16:29] VITALS: PULSE 80
--- NOTE | 2017-09-21 16:59 | CP.PCM.PN ---
Subjective - Date & Time of Evaluation Date of Evaluation: 09/21/17 Time of Evaluation: 16:59 - Subjective Subjective: PATIENT WAS ADMITTED FOR SYNCOPE AND HEAD CONTUSION Objective - Vital Signs/Intake and Output Vital Signs (last 24 hours): Temp Pulse Resp BP Pulse Ox 97.9 F 80 20 123/68 97 09/21/17 16:00 09/21/17 16:00 09/21/17 16:00 09/21/17 16:00 09/21/17 16:00 Intake and Output: 09/21/17 09/21/17 06:59 18:59 Intake Total 800 Balance 800 - Medications Medications: Current Medications Acetaminophen (Tylenol 325mg Tab) 650 mg PO Q6 PRN PRN Reason: Pain, Mild (1-3) Last Admin: 09/20/17 21:12 Dose: 650 mg Amlodipine Besylate (Norvasc) 10 mg PO DAILY [facility] Last Admin: 09/21/17 11:58 Dose: 10 mg Chlorthalidone (Hygroton) 12.5 mg PO DAILY [facility] Last Admin: 09/21/17 11:59 Dose: 12.5 mg Levothyroxine Sodium (Synthroid) 75 mcg PO DAILY@0630 [facility] Last Admin: 09/21/17 05:37 Dose: 75 mcg Losartan Potassium (Cozaar) 100 mg PO DAILY [facility] Last Admin: 09/21/17 12:00 Dose: 100 mg Pantoprazole Sodium (Protonix Ec Tab) 40 mg PO DAILY [facility] Last Admin: 09/21/17 11:59 Dose: 40 mg - Labs Labs: 09/21/17 13:53 09/21/17 10:55 PT 31.9 SECONDS (9.7-12.2) H* D 09/21/17 08:18 INR 2.9 D 09/21/17 08:18 APTT 61 SECONDS (21-34) H D 09/19/17 06:18 Assessment and Plan - Assessment and Plan (Free Text) Assessment: PATIENT SEEN AND EXAMINED AT THE BEDSIDE DISCUSS WITH DR SIMON AND DR DASILVA WHO CLEAR FOR DC FOLLOW UP WITH DR SIMON NEXT WEEK AT HIS OFFICE ----CALL FOR APPOINTMENT FOLLOW UP WITH DR DASILVA OR YOUR OWN MORPHOLOGIST NEXT WEEK ---CALL FOR APPOINTMENT ADDRESS YOUR YOUR BP MEDICATION AND WARFARIN AT YOUR VISIT CONTINUE HOME MEDICATION NEW PRESCRIPTION GIVEN AMLODIPINE 10 MG PO DAILY FOR HTN LOSARTAN 100 MG PO DAILY FOR HTN TYLENOL PRN FOR PAIN CHANGE CHLORTHALIDONE DECREASE TO 12.5 MG PO DAILY STOP TAKING AMIODARONE/ BENICAR AND WARFARIN FOR NOW ACTIVITY TOLERATED CALL DR SIMON OR DR DASILVA OR GO TO THE EMERGENCY ROOM IF SYMPTOMS RETURN OR WORSENING DISCUSS WITH PATIENT WHO AGREE AND VERBALIZED UNDERSTANDING
--- NOTE | 2017-09-22 17:20 | CARD ---
APPROVED REPORT Date of service: 09/18/2017 EKG Measurement Heart [id number] <Conclusion> Sinus bradycardia with 1st degree AV block Otherwise normal ECG
--- NOTE | 2017-10-07 12:02 | CP.PCM.DIS ---
Provider - Provider Date of Admission: 09/18/17 21:45 Attending physician: Sharee Simon MD Time Spent in preparation of Discharge (in minutes): 45 Hospital Course - Lab Results Lab Results: Most Recent Lab Values WBC 5.6 K/uL (4.8-10.8) 09/21/17 13:53 RBC 3.71 Mil/uL (3.80-5.20) L 09/21/17 13:53 Hgb 12.5 g/dL (11.0-16.0) 09/21/17 13:53 Hct 36.5 % (34.0-47.0) 09/21/17 13:53 MCV 98.4 fL (81.0-99.0) 09/21/17 13:53 MCH 33.6 pg (27.0-31.0) H 09/21/17 13:53 MCHC 34.2 g/dL (33.0-37.0) 09/21/17 13:53 RDW 14.2 % (11.5-14.5) 09/21/17 13:53 Plt Count 220 K/uL (130-400) 09/21/17 13:53 MPV 8.1 fL (7.2-11.7) 09/21/17 13:53 Neut % (Auto) 75.9 % (50.0-75.0) H 09/21/17 13:53 Lymph % (Auto) 15.2 % (20.0-40.0) L 09/21/17 13:53 [place] % (Auto) 7.0 % (0.0-10.0) 09/21/17 13:53 Eos % (Auto) 1.3 % (0.0-4.0) 09/21/17 13:53 Baso % (Auto) 0.6 % (0.0-2.0) 09/21/17 13:53 Neut # (Auto) 4.3 K/uL (1.8-7.0) 09/21/17 13:53 Lymph # (Auto) 0.9 K/uL (1.0-4.3) L 09/21/17 13:53 [place] # (Auto) 0.4 K/uL (0.0-0.8) 09/21/17 13:53 Eos # (Auto) 0.1 K/uL (0.0-0.7) 09/21/17 13:53 Baso # (Auto) 0.0 K/uL (0.0-0.2) 09/21/17 13:53 PT 31.9 SECONDS (9.7-12.2) H* D 09/21/17 08:18 INR 2.9 D 09/21/17 08:18 APTT 61 SECONDS (21-34) H D 09/19/17 06:18 Sodium 137 mmol/L (132-148) 09/21/17 10:55 Potassium 5.2 mmol/L (3.6-5.2) 09/21/17 10:55 Chloride 95 mmol/L (98-107) L 09/21/17 10:55 Carbon Dioxide 30 mmol/L (22-30) 09/21/17 10:55 Anion Gap 18 (10-20) 09/21/17 10:55 BUN 29 mg/dL (7-17) H 09/21/17 10:55 Creatinine 1.2 mg/dL (0.7-1.2) 09/21/17 10:55 Est GFR ( Amer) 51 09/21/17 10:55 Est GFR (Non-Af Amer) 42 09/21/17 10:55 Random Glucose 91 mg/dL (65-105) 09/21/17 10:55 Calcium 9.4 mg/dl (8.6-10.4) 09/21/17 10:55 Phosphorus 2.9 mg/dL (2.5-4.5) 09/21/17 10:55 Magnesium 2.0 mg/dL (1.6-2.3) 09/21/17 10:55 Total Bilirubin 0.4 mg/dL (0.2-1.3) 09/21/17 10:55 AST 25 U/L (14-36) 09/21/17 10:55 ALT 23 U/L (9-52) 09/21/17 10:55 Alkaline Phosphatase 52 U/L (38-126) 09/21/17 10:55 Troponin I < 0.0120 ng/mL (0.00-0.120) 09/18/17 20:40 Total Protein 6.8 g/dL (6.3-8.3) 09/21/17 10:55 Albumin 3.9 g/dL (3.5-5.0) 09/21/17 10:55 Globulin 2.9 gm/dL (2.2-3.9) 09/21/17 10:55 Albumin/Globulin Ratio 1.3 (1.0-2.1) 09/21/17 10:55 TSH 3rd Generation 5.43 mIU/L (0.46-4.68) H 09/20/17 07:27 Urine Color Straw (YELLOW) 09/19/17 16:58 Urine Clarity Clear (Clear) 09/19/17 16:58 Urine pH 6.0 (5.0-8.0) 09/19/17 16:58 Ur Specific [place] 1.009 (1.003-1.030) 09/19/17 16:58 Urine Protein Negative mg/dL (NEGATIVE) 09/19/17 16:58 Urine Glucose (UA) Normal mg/dL (Normal) 09/19/17 16:58 Urine Ketones Negative mg/dL (NEGATIVE) 09/19/17 16:58 Urine Blood 1+ (NEGATIVE) H 09/19/17 16:58 Urine Nitrate Negative (NEGATIVE) 09/19/17 16:58 Urine Bilirubin Negative (NEGATIVE) 09/19/17 16:58 Urine Urobilinogen Normal mg/dL (0.2-1.0) 09/19/17 16:58 Ur Leukocyte Esterase Neg [place]/uL (Negative) 09/19/17 16:58 Urine WBC (Auto) 3 /hpf (0-5) 09/19/17 16:58 Urine RBC (Auto) 1 /hpf (0-3) 09/19/17 16:58 Ur Squamous Epith Cells < 1 /hpf (0-5) 09/19/17 16:58 - Hospital Course Hospital Course: Chief complaint: Fall HPI: 89-year-old female came to the emergency room on 09/18/2017 after she was experiencing dizziness, and had a fall. While she was sitting in the commode, she felt like she was sleeping and she fell on the floor and had injury to the left forehead and also left facial area. Patient did not have any recollection. In the emergency room she had a bruising of the left forehead. She did not have any other active systemic symptoms of fever chills nausea vomiting or other headache. She did not remember the fall. She was having no chest pain. No palpitation Past medical history: Hypertension Hypercholesterolemia Intermittent atrial fibrillation Hypothyroidism Allergy Lipitor Family history: Parents of natural cause. Siblings 2 of them alive right now Patient is a non-smoker nonalcoholic. Current medications: Metoprolol, amlodipine, tramadol, pantoprazole, losartan, levothyroxine, chlorthalidone, amiodarone, Coumadin. Review of system: Patient is having minimal pain over the left forehead region also complaining of swelling in the left face. Minimal headache. Syncope noted. Palpitation negative. Feeling dizzy Weakness noted. Epigastric pain On examination: Vital signs stable. But mild bradycardia noted the sinus Chest good air entry regular heart sounds nontender abdomen. Patient has a significant ecchymotic changes in the left foot. Patient labs reviewed Nonspecific labs. 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 EKG mild sinus bradycardia noted Assessment and recommendation: Patient is 89-year-old female with a history of hypertension atrial fibrillation hypothyroidism Silva's esophagus. Osteoporosis. Osteoarthritis. Admitted now with the fall. Patient also had a syncopal episode. Patient needs to be evaluated, monitored closely. We will continue the current treatment. We will follow the patient Patient was closely monitored. She was on telemetry. Seen by cardiology. Also seen by ribbon tier. Patient had an sinus bradycardia. After discussion with the cardiology amiodarone was discontinued also Coumadin is off. Will resume metoprolol. Rest of the medications reviewed with the patient. She is clinically stable. She will be discharged home. She will follow-up as an outpatient with cardiology regarding the anticoagulation. Patient currently having sinus bradycardia stable. We will continue the current management and will follow the patient. Discharge Plan - Discharge Medications Prescriptions: Losartan [Cozaar] 100 mg PO DAILY 30 Days tab Chlorthalidone [Hygroton] 12.5 mg PO DAILY 30 Days tab amLODIPine [Norvasc] 10 mg PO DAILY 30 Days tab Pantoprazole [Protonix] 40 mg PO DAILY 30 Days ect Acetaminophen [Tylenol 325mg tab] 650 mg PO Q6 PRN 3 Days tab PRN Reason: Pain, Mild (1-3) - Follow Up Plan Condition: FAIR Disposition: HOME/ ROUTINE Instructions: Bradycardia (DC), Amlodipine, Chlorthalidone, Pantoprazole, Syncope (DC), Contusion in Adults (DC) Additional Instructions: FOLLOW UP WITH DR SIMON NEXT WEEK AT HIS OFFICE ----CALL FOR APPOINTMENT FOLLOW UP WITH DR DASILVA OR YOUR OWN CONTAINER MAKER NEXT WEEK ---CALL FOR APPOINTMENT ADDRESS YOUR YOUR BP MEDICATION AND WARFARIN AT YOUR VISIT CONTINUE HOME MEDICATION NEW PRESCRIPTION GIVEN AMLODIPINE 10 MG PO DAILY FOR HTN LOSARTAN 100 MG PO DAILY FOR HTN PROTONIX 40 PO DAILY TYLENOL PRN FOR PAIN CHANGE CHLORTHALIDONE DECREASE TO 12.5 MG PO DAILY STOP TAKING AMIODARONE/ BENICAR/ OMEPRAZOLE AND WARFARIN FOR NOW ACTIVITY TOLERATED CALL DR SIMON OR DR DASILVA OR GO TO THE EMERGENCY ROOM IF SYMPTOMS RETURN OR WORSENING Referrals: Darius Dasilva MD [Staff Provider] - Sharee Simon MD [Staff Provider] - Kel Baker MD [Staff Provider] -
== END 2017-09-21 18:11 | disposition home or self-care (01) | DRG 312 ==
LOC: C.ER 19:39 → C.9E 21:45 → C.5S 22:37
PROVIDERS: ADMIT Internal Medicine; ATTEND Internal Medicine
PROC: 0DB68ZX Excision of Stomach, Via Natural or Artificial Opening Endoscopic, Diagnostic (ICD-10-PCS; 2017-09-21)
PROC: 0DB58ZX Excision of Esophagus, Via Natural or Artificial Opening Endoscopic, Diagnostic (ICD-10-PCS; principal; 2017-09-21 09:48)
DX: R55 Syncope and collapse (principal); K29.70 Gastritis, unspecified, without bleeding; K44.9 Diaphragmatic hernia without obstruction or gangrene; K20.9 Esophagitis, unspecified; I10 Essential (primary) hypertension; E03.9 Hypothyroidism, unspecified; I48.91 Unspecified atrial fibrillation; N28.9 Disorder of kidney and ureter, unspecified; S00.83XA Contusion of other part of head, initial encounter; W19.XXXA Unspecified fall, initial encounter; R79.1 Abnormal coagulation profile; R00.1 Bradycardia, unspecified; I11.0 Hypertensive heart disease with heart failure; I50.9 Heart failure, unspecified; K22.70 Barrett's esophagus without dysplasia; M19.90 Unspecified osteoarthritis, unspecified site; M81.0 Age-related osteoporosis without current pathological fracture